=== PATIENT | female | born 1945 | race African-American/Black ===

== ENCOUNTER 2017-12-10 08:09 | Outpatient (CLI) | payer OTHER, MEDICARE | END 2017-12-10 08:10 | disposition home or self-care (01) | LOC: BICMAMMO 08:09 | PROVIDERS: ATTEND Internal Medicine | DX: Z12.31 Encounter for screening mammogram for malignant neoplasm of breast (principal); Z80.3 Family history of malignant neoplasm of breast | CPT/HCPCS: 77063; 77067 ==

== ENCOUNTER 2018-02-07 07:07 | Outpatient (CLI) | payer OTHER, MEDICARE ==
--- NOTE | 2018-02-07 08:17 | RAD ---
3 VIEWS LUMBAR SPINE: Date: 02/07/18 COMPARISON: None. HISTORY: Low back pain. FINDINGS: There is prominent degenerative change noted within the lower lumbar spine with significant disc spac e narrowing, degenerative end plate change, and osteophyte formation at L3-4, L4-5, and L5-S1. No acu te fracture is evident. There is prominent multilevel lower lumbar spine facet hypertrophic change. N o significant anterolisthesis or retrolisthesis seen. IMPRESSION: Prominent multilevel degenerative disc disease. No acute fracture is seen. POS: [facility]
== END 2018-02-07 07:08 | disposition home or self-care (01) ==
LOC: RAD-FRANK 07:07
PROVIDERS: ATTEND Internal Medicine
DX: M54.9 Dorsalgia, unspecified (principal); G89.29 Other chronic pain; M51.36 Other intervertebral disc degeneration, lumbar region
CPT/HCPCS: 72100

== ENCOUNTER 2018-08-27 12:37 | Outpatient (CLI) | payer OTHER, MEDICARE ==
[~2018-08-27 12:37] MED LIST: Gadobenate Dimeglumine 529 MG/1 ML (20ML VIAL) ONE
--- NOTE | 2018-08-27 17:29 | MRI ---
MRI OF THE RIGHT THIGH WITH AND WITHOUT IV CONTRAST: 08/27/18 PROVIDED CLINICAL HISTORY: Right thigh mass. No comparisons. There is a circumscribed, mass-like area of signal alteration present at the anterior aspect of the r ight proximal thigh measuring approximately 9.6 x 6.4 cm in greatest transverse dimensions and approx imately 15.8 cm in craniocaudal dimension. This demonstrates an inhomogeneously, primarily T2 hyperin tense appearance with foci of somewhat globular T2 hypointensity at the cranial margin. This mass harvey ears predominantly isointense to skeletal muscle on T1 weighted images. There is diffuse, predominant ly solid appearing contrast enhancement. This mass arises from the rectus femoris muscle and is inseparable from such. This is extensively con tiguous with the sartorius muscle at its posterior margin without apparent intervening fat plane. The re are portions of the interface with the vastus musculature posteriorly that demonstrate no definite fat plane the two. The tensor fascia trixie muscle extensively abuts the mass with an intac t intervening fat plane throughout its course. The courses of the regional major neurovascular structures appear separate from this mass. Regional m arrow signal appears normal. Regional muscular signal appears otherwise normal. There is a physiologic amount of fluid within the right hip joint. There is presumably subcortical cy st-like change related to occult articular cartilage loss involving the posterior aspects of the righ t femoral head. The regional tendons demonstrate an intact MR appearance. There is an enlarged lymph node present in the right obturator region. IMPRESSION: 1. Large heterogeneous intramuscular enhancing solid soft tissue mass within the right rectus fe miquel muscle, compatible with malignancy such as sarcoma. 2. Enlarged right obturator lymph node, which may reflect metastatic disease. POS: [facility]
== END 2018-08-27 12:38 | disposition home or self-care (01) ==
LOC: SCSMRI 12:37
PROVIDERS: ATTEND Orthopaedic Surgery
DX: R22.41 Localized swelling, mass and lump, right lower limb (principal); M17.0 Bilateral primary osteoarthritis of knee; R59.0 Localized enlarged lymph nodes
CPT/HCPCS: 82565; A9579

== ENCOUNTER 2018-12-04 00:13 | Outpatient (CLI) | payer OTHER, MEDICARE ==
[2018-12-04 11:49] LABS: #Basophils 0.1 thou/uL (0.0-0.2); #Eosinphils 0.3 thou/uL (0.0-0.7); #Lymphocytes 2.6 thou/uL (1.20-3.40); #Monocytes 0.4 thou/uL (0.11-0.59); #Neutrophils 6.4 thou/uL (1.40-6.50); %Basophils 0.9 % (0.0-1.0); %Eosinophils 3.4 % (0.0-10.0); %Lymphocytes 26.1 % (21.0-51.0); %Monocytes 4.4 % (0.0-10.0); %Neutrophils 65.1 % (42.0-75.0); Mean Corpuscular HGB CONC 30.7 g/dL (32.0-36.0); Mean Corpuscular Volume 84.7 fL (78.0-98.0); Mean Platelet Volume 6.8 fL (7.4-10.4); Platelet Count 411 thou/uL (130-400); RBC Distribution Width 12.7 % (11.5-14.5); Red Blood Cell (RBC) Count 3.85 mill/uL (4.20-5.40); White Blood Cell (WBC) Count 9.8 thou/uL (4.8-10.8)
[2018-12-04 12:17] LABS: Anion Gap 14 mmol/L (10-20); BUN (Urea Nitrogen) 13 mg/dL (9.8-20.1); Calc. Creatinine Clearance 0 mL/min (70-130); Calcium 10.1 mg/dL (7.8-10.44); Carbon Dioxide 27 mmol/L (23-31); Chloride 99 mmol/L (98-107); Estimated GFR-MDRD 70; Glucose 78 mg/dL (83-110); Potassium 4.1 mmol/L (3.5-5.1); Sodium 136 mmol/L (136-145)
--- NOTE | 2018-12-04 12:37 | RAD ---
PA AND LATERAL CHEST: Indication: History of pre op. Comparison: 03-23-10 FINDINGS: There is mild cardiomegaly without evidence of cardiac decompensation. No consolidation, pleural effu juni or pneumothorax. There is multilevel spondylosis present. There are surgical anchors within the humeral heads bilaterally consistent with prior rotator cuff repair. IMPRESSION: Mild cardiomegaly without evidence of cardiac decompensation. POS: [facility]
--- NOTE | 2018-12-06 16:36 | EKG ---
Test Reason : Blood Pressure : / mmHG Vent. Rate : 077 BPM Atrial Rate : 077 BPM P-R Int : 160 ms QRS Dur : 086 ms QT Int : 396 ms P-R-T Axes : 059 -07 041 degrees QTc Int : 448 ms Normal sinus rhythm Normal ECG When compared with ECG of 28-AUG-2011 10:22, No significant change was found Confirmed by DR. Shirin ABURTO ([id number]) on 12/06/2018 4:35:51 PM Referred By: MARTHA Confirmed By:DR. Shirin ABURTO
== END 2018-12-04 00:14 | disposition home or self-care (01) ==
LOC: LABBT 00:13
PROVIDERS: ATTEND Specialist
DX: Z01.818 Encounter for other preprocedural examination (principal); C49.21 Malignant neoplasm of connective and soft tissue of right lower limb, including hip; I51.7 Cardiomegaly
CPT/HCPCS: 71046; 80048; 85025; 93005; 93010

== ENCOUNTER 2018-12-05 06:21 | Day surgery (SDC) | payer OTHER, MEDICARE ==
[2018-12-04 10:57] VITALS: BMI 36.2
[2018-12-05] MEDS ORDERED: Bupivacaine/Epinephrine 0.25% 30 ML VIAL ONE (08:23)
[2018-12-05] MEDS ORDERED: Lidocaine 1% (PF) 30 ML VIAL ONE (08:23)
[2018-12-05] MEDS ORDERED: Fentanyl 100 MCG/2 ML VIAL ONE (08:28)
[2018-12-05] MEDS ORDERED: Lidocaine 2% Jelly 5 ML TUBE ONE (08:29)
[2018-12-05] MEDS ORDERED: Glycopyrrolate 0.2 MG/ML 5 ML SYRINGE ONE (10:06)
[2018-12-05] MEDS ORDERED: Ondansetron PF 4 MG/2 ML Vial ONE (10:06)
[2018-12-05] MEDS ORDERED: PROPOFOL 200 MG/20 ML VIAL ONE (10:06)
--- NOTE | 2018-12-05 11:37 | RAD ---
CHEST 1 VIEW: INDICATION: History of MediPort placement. FINDINGS: There is a new subclavian right chest wall MediPort with the tip projecting in the SVC. No pneumotho rax is evident. Cardiomegaly and chronic lung changes are stable. IMPRESSION: New chest wall MediPort placement without evidence of pneumothorax. POS: [facility]
--- NOTE | 2018-12-06 02:28 | OP ---
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 OPERATION PERFORMED: Placement of right subclavian standard-sized power compatible MediPort. ANESTHESIA: Total intravenous anesthesia with local using 0.25% Marcaine with epinephrine. INDICATIONS: The patient is a 73-year-old black female who presents with a fairly large right thigh sarcoma. MediPort is requested for chemotherapy administration. DESCRIPTION OF OPERATION: Informed consent was obtained. The patient was taken to the operating room where total intravenous anesthesia was obtained with the patient in supine position. Right periclavicular area was prepped with ChloraPrep and draped in sterile fashion. Local anesthetic was infiltrated and a large-gauge needle was passed under the clavicle in the subclavian vein. Guidewire was passed through the needle and fluoroscopically confirmed to enter the superior vena cava. Additional local anesthetic was infiltrated and transverse incision was created based on needle insertion site. A subcutaneous pocket was dissected inferiorly. Introducer dilator was passed over the guidewire under fluoroscopic guidance. The guidewire and dilator were removed, and the catheter was passed through the introducer. The tip of the catheter was positioned at the atriocaval junction and the catheter was trimmed to the appropriate length and secured to the locking hub of the MediPort. The port was then placed in the subcutaneous pocket where it was secured to the pectoral fascia with 2 interrupted sutures of 3-0 Prolene. The incision was then closed in layers with 3-0 and 4-0 Monocryl. Additional local anesthetic was infiltrated. The port was cannulated with a Calix needle and it aspirated blood freely and was flushed with heparinized saline. Dermabond was placed externally on the skin incision. There were no complications. Blood loss was negligible. The patient tolerated the procedure well and was taken to recovery room in stable condition. FINDINGS: I used a low-profile power compatible MediPort. The patient's anatomy was within normal limits and there were no problems during the procedure. A standard size port was chosen and placed uneventfully in the right subclavian vein. Blood loss was negligible. There were no complications. Fluoroscopy confirmed good placement. The patient tolerated the procedure well, was taken to the recovery room in stable condition. Job ID: [id number]
== END 2018-12-05 10:25 | disposition home or self-care (01) ==
LOC: SDC 06:21
PROVIDERS: ATTEND Specialist
PROC: 05H533Z Insertion of Infusion Device into Right Subclavian Vein, Percutaneous Approach (ICD-10-PCS; principal; 2018-12-05)
DX: C76.51 Malignant neoplasm of right lower limb (principal); I10 Essential (primary) hypertension; E11.9 Type 2 diabetes mellitus without complications; J32.9 Chronic sinusitis, unspecified; J45.909 Unspecified asthma, uncomplicated; M06.9 Rheumatoid arthritis, unspecified; Z79.82 Long term (current) use of aspirin; Z79.84 Long term (current) use of oral hypoglycemic drugs; Z79.899 Other long term (current) drug therapy
CPT/HCPCS: 71045; C1788; J0131; J1642; J2001; J3010

== ENCOUNTER 2019-01-24 07:53 | Outpatient (CLI) | payer OTHER, MEDICARE ==
--- NOTE | 2019-01-24 08:35 | RAD ---
CHEST TWO VIEWS: HISTORY: Malignant neoplasm. COMPARISON: 12/05/2018 FINDINGS: The cardiac silhouette and pulmonary vasculature are unremarkable. The mediastinum is midline with a ortic calcification. The right subclavian Mediport remains in place. The catheter now loops over th e lower internal jugular vein, with the tip near the confluence of the subclavian and internal jugula r veins. No evidence of pneumothorax. No pleural fluid or lobar consolidation. Postoperative skinner es, right shoulder. IMPRESSION: 1. The catheter of the right subclavian Mediport has become elevated somewhat, with a loop in the lo wer internal jugular vein and the tip at the upper superior vena cava. 2. Atherosclerosis. 3. Other findings are stable. POS: [facility]
== END 2019-01-24 07:54 | disposition home or self-care (01) ==
LOC: RAD 07:53
PROVIDERS: ATTEND Specialist
DX: C76.51 Malignant neoplasm of right lower limb (principal); I70.0 Atherosclerosis of aorta; Z98.890 Other specified postprocedural states
CPT/HCPCS: 71046

== ENCOUNTER 2019-02-06 18:46 | Day surgery (SDC) | payer OTHER, MEDICARE ==
[2019-02-06 18:58] VITALS: BMI 33.3
[2019-02-06] MEDS ORDERED: diphenhydrAMINE 25 MG CAP PO SCH (19:00)
[2019-02-06] MEDS ORDERED: Acetaminophen 500 MG TAB PO SCH (19:00)
[2019-02-06] MEDS ORDERED: Prevnar 13-Val Conj/PF 0.5 ML SYRINGE IM ONE (21:00)
[2019-02-07 03:34] VITALS: BP 115/57; TEMP 99
[2019-02-07] MEDS ORDERED: Sodium Chloride 0.9% 10 ML ONE ×2 (03:38→03:46)
[2019-02-07 04:11] LABS: Mean Corpuscular Volume 91.3 fL (78.0-98.0)
[2019-02-07 05:02] LABS: Band 4 % (5-11); Eosinophils 2 % (0-10); Hemoglobin 7.9 g/dL (12.0-16.0); Lymphocytes 67 % (21-51); MDiff Complete? YES; Mean Corpuscular HGB CONC 33.2 g/dL (32.0-36.0); Mean Corpuscular Hemoglobin 30.3 pg (27.0-31.0); Mean Platelet Volume 6.9 fL (7.4-10.4); Monocytes 2 % (0-10); Neutrophil 22 % (42-75); Platelet Count 149 thou/uL (130-400); RBC Distribution Width 16.3 % (11.5-14.5); Reactive Lymphocytes 2 % (0-10); White Blood Cell (WBC) Count 1.9 thou/uL (4.8-10.8)
== END 2019-02-07 04:00 | disposition home or self-care (01) ==
LOC: 3SE 18:46 → UNDOADMIN 18:46 → SDC 18:46 → UNDODISIN 02-07 04:00 → SDC/OP 02-07 04:00 → EDSTATUS 02-07 13:35
PROVIDERS: ATTEND Internal Medicine Hematology & Oncology
PROC: 30233N1 Transfusion of Nonautologous Red Blood Cells into Peripheral Vein, Percutaneous Approach (ICD-10-PCS; principal; 2019-02-07)
DX: D64.9 Anemia, unspecified (principal); D69.6 Thrombocytopenia, unspecified
CPT/HCPCS: 36415; 36430; 82728; 83540; 83550; 85025; 86850; 86900; 86901; 90471; 90670; G0009; J1642; P9016; Q0163

== ENCOUNTER 2019-12-24 12:00 | Outpatient (CLI) | payer MEDICARE ==
--- NOTE | 2019-12-24 13:29 | CT ---
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 History of chemotherapy and radiation. FINDINGS: Mediastinum: No mass, lymphadenopathy, or hematoma. Heart: Normal heart size. No pericardial effusion. Minimal coronary artery calcification. Aorta: Atherosclerosis without evidence of aneurysm or periaortic fat stranding. Vessels: Right-sided MediPort catheter terminates in the superior vena cava. Lower neck and axilla: No evidence of mass or lymphadenopathy. Soft tissues: Asymmetric density in the left breast, incompletely evaluated. Left breast mammogram is recommended. Upper abdomen: No acute abnormality. Trachea and central bronchi: Patent. Pleural spaces: No pleural effusion. No pneumothorax. Lungs: Scar and dependent atelectatic change. No masses or consolidation. Nodules: No suspicious nodules in the right or left lung. Osseous structures: No lytic or blastic lesions. There are degenerative changes with osteophyte forma tion in the thoracic spine. IMPRESSION: 1. No CT evidence of intrathoracic malignancy or metastases. 2. Asymmetric density in the left breast with asymmetric skin thickening of the left breast. Left yahaira ast mammogram is recommended. CODE T Transcribed Date/Time: 12/24/2019 1:48 PM
--- NOTE | 2019-12-24 14:35 | MRI ---
MR OF THE RIGHT THIGH WITH AND WITHOUT CONTRAST: 12/24/19 INDICATION: History of sarcoma removal from right femur; follow-up exam. COMPARISON: Prior MR of the right thigh with and without contrast dated 08/27/18. TECHNIQUE: Multiplanar and multisequence MR images were obtained of the right thigh with and without contrast ut ilizing 20 mL of Multihance. FINDINGS: There is postsurgical change of a partial resection of the rectus femoris muscle and the large hetero geneous enhancing intramuscular mass seen within the right rectus femoris muscle on the prior examina tion. No suspicious recurrent enhancement is grossly evident. There is mild enhancing scar seen withi n the surgical bed of the right anterior thigh muscular compartment. There is mild subcutaneous edema involving the soft tissues of the right thigh. There is a suspected seroma involving the medial aspe ct of the distal left thigh measuring 7.4 x 4.1 cm. There is a persistent enlarged right obturator ly mph node seen best on the sagittal images of the thigh measuring 2.5 x 1.8 cm. There is mild scattere d degenerative change of the visualized right hip. The visualized intrapelvic structures appear withi n normal limits. IMPRESSION: 1. Mild amount of residual enhancing scar seen within the resection bed of the anterior muscular compartment of the right thigh. There is a moderate sized seroma measuring 7.4 x 4.1 cm within the s ubcutaneous tissue along the distal margin of the surgical bed. No overt evidence to suggest local re currence of disease. 2. Persistent enlarged right obturator lymph node. POS:
== END 2019-12-24 12:01 | disposition home or self-care (01) ==
LOC: CT 12:00
DX: C49.21 Malignant neoplasm of connective and soft tissue of right lower limb, including hip (principal); R92.2 Inconclusive mammogram; N64.89 Other specified disorders of breast; R59.0 Localized enlarged lymph nodes; S70.11XA Contusion of right thigh, initial encounter
CPT/HCPCS: 71260; 82565

== ENCOUNTER 2020-09-04 08:44 | Inpatient (IN) | payer MEDICARE, OTHER ==
[2020-09-04] MEDS ORDERED: Dexamethasone 10 MG/ML VIAL ONE (09:23)
[2020-09-04 09:52] LABS: #Eosinphils 0.1 thou/uL (0.0-0.7); #Lymphocytes 0.7 thou/uL (1.20-3.40); #Monocytes 0.2 thou/uL (0.11-0.59); #Neutrophils 2.2 thou/uL (1.40-6.50); %Basophils 0.2 % (0.0-1.0); %Eosinophils 3.7 % (0.0-10.0); %Lymphocytes 22.2 % (21.0-51.0); %Monocytes 6.5 % (0.0-10.0); %Neutrophils 67.4 % (42.0-75.0); Hemoglobin 10.3 g/dL (12.0-16.0); Mean Corpuscular HGB CONC 31.3 g/dL (32.0-36.0); Mean Corpuscular Volume 89.6 fL (78.0-98.0); Mean Platelet Volume 7.5 fL (7.4-10.4); Platelet Count 214 thou/uL (130-400); RBC Distribution Width 12.6 % (11.5-14.5); Red Blood Cell (RBC) Count 3.67 mill/uL (4.20-5.40); White Blood Cell (WBC) Count 3.3 thou/uL (4.8-10.8)
--- NOTE | 2020-09-04 09:52 | RAD ---
PORTABLE CHEST: HISTORY: COVID positive with new cough and fever. COMPARISON: A 01/24/2019 which is the most recent chest x-ray available for comparison. FINDINGS: Heart size is enlarged. Pulmonary vessels appear mildly engorged. There are also some patchy lung c hanges in the left mid lung field and right base. This could represent some early infiltrates relate d to COVID pneumonia. IMPRESSION: Findings suspicious for some developing bilateral infiltrates. POS: [facility]
[2020-09-04 10:15] LABS: ALT (SGPT) 18 U/L (8-55); AST (SGOT) 33 U/L (5-34); Albumin 3.5 g/dL (3.4-4.8); Alkaline Phosphatase 94 U/L (40-110); Anion Gap 14 mmol/L (10-20); BUN (Urea Nitrogen) 14 mg/dL (9.8-20.1); Bilirubin, Total 0.7 mg/dL (0.2-1.2); Calc. Creatinine Clearance 0 mL/min (70-130); Calcium 8.6 mg/dL (7.8-10.44); Carbon Dioxide 28 mmol/L (23-31); Chloride 102 mmol/L (98-107); Globulin 3.4 g/dL (2.4-3.5); Glucose 104 mg/dL (83-110); Protein, Total 6.9 g/dL (6.0-8.3); Sodium 140 mmol/L (136-145)
[2020-09-04] MEDS ORDERED: Azithromycin 500 MG VIAL ONE (10:50)
[2020-09-04] MEDS ORDERED: cefTRIAXone\\ROCEPHIN 2 GM VIAL ONE (10:50)
[2020-09-04 11:25] LABS: CKMB 0.3 ng/mL (0-6.6)
[2020-09-04] MEDS ORDERED: Iopamidol-370 76% 500 ML 1 ML ONE (12:10)
[2020-09-04] MEDS ORDERED: Acetaminophen 325 MG TAB PO PRN (14:01)
[2020-09-04] MEDS ORDERED: Senokot S 8.6-50 MG TAB PO PRN (14:01)
[2020-09-04 14:54] LABS: Troponin I 0.026 ng/mL (< 0.028)
[2020-09-04 15:04] LABS: SARS-CoV-2 NAA Rapid Test DETECTED (NotDetected)
--- NOTE | 2020-09-04 15:07 | CT ---
CTA Angio Chest W Con History: Elevated d-dimer Comparison: Chest radiograph same day Findings: CT angiogram chest performed after the intravenous administration of contrast. 3-D renderin g provided. No proximal segmental pulmonary arterial filling defect of the exam is limited due to the delayed pha se of contrast. Aortic size is nonaneurysmal. Upper abdomen is without acute abnormality. Extensive peripheral patchy perihilar airspace opacities. No pneumothorax. Impression: 1. No pulmonary embolism. 2. Commonly reported imaging findings of Covid-19 pneumonia.
[2020-09-04] MEDS ORDERED: traMADol HCl 50 MG TAB PO PRN (16:13)
--- NOTE | 2020-09-04 16:39 | HP ---
CHIEF COMPLAINT: Generalized weakness. HISTORY OF PRESENT ILLNESS: The patient is a 74-year-old female with a past medical history of hypertension, diabetes, and asthma, who comes into the hospital with complaints of generalized weakness and decreased appetite for the past couple days. The patient stated that her daughter tested positive for COVID on Sunday and she started having symptoms starting Sunday. The patient COVID test in the ER was positive. She denies any shortness of breath, any nausea, vomiting; however, she did have diarrhea x2. Chief complaint, of note chills; however, had some subjective fevers. PAST MEDICAL HISTORY: As of the following; 1. She has a history of diabetes. 2. She has a history of hypertension. 3. She has a history of asthma. 4. She has a history of sarcoma of the right lower limb and chronic sinusitis. PAST SURGICAL HISTORY: She has had a and med port put in. FAMILY HISTORY: Father is with lung cancer. Mother , had cancer of unknown origin. ALLERGIES: SHE HAS NO KNOWN DRUG ALLERGIES. MEDICATIONS: She is on; 1. Lisinopril. 2. Metformin. 3. Vitamin D. 4. Aspirin. 5. Calcium. 6. She takes a p.r.n. inhaler. REVIEW OF SYSTEMS: All negative except for the ones mentioned above in the HPI. SOCIAL HISTORY: She is a nonsmoker. Denies any alcohol use or drug use. She is a , lives alone. PHYSICAL EXAMINATION: VITAL SIGNS: As of the following; temperature of 99.3, heart rate 83, blood pressure 129/61, respiratory rate 20, and oxygen saturations 95% on room air. GENERAL: She is awake, alert, and oriented x3. Does not appear in distress, able to speak complete sentences. CV: S1 and S2 present. No murmurs, rubs, or gallops. LUNGS: Clear to auscultation. No rhonchi or wheezes noted. No crackles. ABDOMEN: Soft and nontender. Bowel sounds are present x2. EXTREMITIES: No edema. Pedal pulses are present x2. NEUROLOGIC: Neurovascular, there was no focal deficits noted. SKIN: No cuts, lesions, or bruises noted. LABORATORY DATA: White count of 3.3, hemoglobin of 10.3, hematocrit of 32.9, and her platelets of 214. Chemistry; sodium of 140, potassium of 4.0, BUN of 14, creatinine 1.06. Her ferritin is 3471. Her CRP is 10. Her troponin was mildly elevated at 0.030. EKG, no acute changes. She did have a CTA, which showed COVID like appearance. No PE noted. ASSESSMENT AND PLAN: The patient is a 74-year-old female, who presents to the hospital with generalized weakness. 1. Positive COVID. The patient currently is not on room air. She is 96% to 100%. She is not short of breath. She does not qualify for remdesivir nor she qualify for Decadron. The only reason she was admitted was for mildly positive troponins; however, given her COVID status, her hospital will not allow us to do an echocardiogram or a stress test. Her second troponin has been negative. She has no EKG changes. No chest pain. This is most likely secondary to mildly demand related from her current COVID disease. I will continue to trend her third troponin. I will start her on her home medications with DVT prophylaxis. If her third troponin is negative from COVID standpoint, I will discharge her home. There is a very great likelihood for her to decompensate. Given her history of asthma and her age; however, at this moment, she does not qualify for remdesivir nor did she qualify for any steroids given her 96% on room air. 2. Troponin mildly elevated. We will trend her troponins. Again, this is most likely secondary to demand related, a very, very mild elevation of troponin with no EKG changes and the patient is completely asymptomatic. I will just continue to monitor. She will follow up with her primary and also her Cardiology as outpatient. 3. Diabetes. We will continue her home medication. 4. Asthma. I have encouraged her to use her inhaler as needed. She states that she has not been using her inhaler and she has never had any intubations. 5. Deep venous thrombosis prophylaxis. I will put her on some Lovenox. Job ID: [id number]
[2020-09-04 18:57] LABS: Troponin I 0.026 ng/mL (< 0.028)
[2020-09-04 19:37] VITALS: BMI 34.8
[2020-09-05 04:51] LABS: #Lymphocytes 0.8 thou/uL (1.20-3.40); #Monocytes 0.3 thou/uL (0.11-0.59); #Neutrophils 1.7 thou/uL (1.40-6.50); %Eosinophils 0.4 % (0.0-10.0); %Monocytes 9.5 % (0.0-10.0); Hemoglobin 9.4 g/dL (12.0-16.0); Mean Corpuscular HGB CONC 31.8 g/dL (32.0-36.0); Mean Corpuscular Volume 91.1 fL (78.0-98.0); Mean Platelet Volume 7.6 fL (7.4-10.4); Platelet Count 218 thou/uL (130-400); RBC Distribution Width 12.4 % (11.5-14.5); Red Blood Cell (RBC) Count 3.24 mill/uL (4.20-5.40); White Blood Cell (WBC) Count 2.8 thou/uL (4.8-10.8)
[2020-09-05 05:13] LABS: Anion Gap 16 mmol/L (10-20); BUN (Urea Nitrogen) 17 mg/dL (9.8-20.1); Calc. Creatinine Clearance 77 mL/min (70-130); Calcium 8.6 mg/dL (7.8-10.44); Carbon Dioxide 23 mmol/L (23-31); Chloride 107 mmol/L (98-107); Glucose 123 mg/dL (83-110); Sodium 142 mmol/L (136-145)
[2020-09-05] MEDS ORDERED: Enoxaparin Sodium 40 MG/0.4 ML SYRINGE SC SCH (09:00)
[2020-09-05] MEDS ORDERED: Lisinopril 10 MG TAB PO SCH (09:00)
[2020-09-05] MEDS ORDERED: FLU VACC QS2020-21(65YR UP)/PF 240 MCG/0.7 ML SYRINGE IM ONE (09:00)
[2020-09-05] MEDS ORDERED: Guaifenesin DM 100-10/5 ML UDCUP PO PRN (09:12)
[2020-09-05] MEDS ORDERED: Zinc Sulfate 220 MG CAP PO SCH (09:15)
[2020-09-05] MEDS ORDERED: Famotidine 20 MG TAB PO SCH (09:15)
[2020-09-05] MEDS ORDERED: Multivit, Therapeutic 1 TAB PO SCH (09:15)
[2020-09-05] MEDS ORDERED: Ascorbic Acid 500 mg Chewable Tablet PO SCH (09:15)
[2020-09-05] MEDS ORDERED: Albuterol 200 PUFF (6.7GM INHALER) INH PRN (09:22)
[2020-09-05] MEDS ORDERED: REMDESIVIR (EUA) 200 MG in Sodium Chloride 0.9% 250 ML 210 ML IV SCH (10:00)
[2020-09-05] MEDS: Triamterene/Hydrochlorothiazide 37.5 mg/25 mg Tablet PO SCH (11:43)
[2020-09-05] MEDS: Cholecalciferol 1,000 UNITS (25 MCG) TAB PO SCH (11:43)
[2020-09-05] MEDS: Fish Oil 1,000 MG CAP PO SCH (11:43)
[2020-09-05] MEDS: Dexamethasone 4 mg/ml Vial SLOW IVP SCH (11:44)
[2020-09-05] MEDS: Calcium Carbonate 600 MG TAB PO SCH (11:44)
[2020-09-05] MEDS: Aspirin Chewable 81 MG TAB PO SCH (11:44)
--- NOTE | 2020-09-05 15:53 | PDOC.HOSPP ---
- Subjective Encounter Date: 09/05/20 Encounter Time: 09:30 Subjective: Patient seen and examined for respiratory failure due to COVID-19 pneumonia. Short of breath on [id number] exertion. Mild dry cough. Denies any chest pain, palpitations or syncope. No nausea or vomiting. - Objective Vital Signs & Weight: Vital Signs (12 hours) Temp Pulse Resp BP Pulse Ox 09/05/20 12:00 99.6 F 82 34 H 146/67 H 92 L 09/05/20 09:19 98.9 F 78 20 168/76 H 94 L 09/05/20 04:00 98.2 F 72 18 136/66 93 L Weight Admit Weight 203 lb Weight 203 lb I&O: 09/04/20 09/05/20 09/06/20 06:59 06:59 06:59 Intake Total 1180 Output Total 1300 Balance -120 Result Diagrams: 09/05/20 04:40 09/05/20 04:40 Additional Labs: Abnormal Lab Results - Last 48 hrs 09/04/20 09:39: Albumin/Globulin Ratio 1.0 L 09/04/20 09:39: WBC 3.3 L, RBC 3.67 L, Hgb 10.3 L, Hct 32.9 L, MCHC 31.3 L, Lymphocytes # 0.7 L 09/04/20 09:39: Troponin I 0.030 H 09/04/20 09:39: C-Reactive Protein 10.03 H 09/04/20 09:39: Ferritin 3471.00 H 09/04/20 09:39: Lactate Dehydrogenase 354 H 09/04/20 09:39: D-Dimer 1.83 H 09/04/20 09:40: SARS-CoV-2 Rap RNA(RT-PCR) DETECTED A* 09/05/20 04:40: WBC 2.8 L, RBC 3.24 L, Hgb 9.4 L, Hct 29.5 L, MCHC 31.8 L, Lymphocytes # 0.8 L Microbiology - Entire Visit 09/04/20 10:56 Venous blood - Left Arm Blood Culture - Preliminary Specimen has been received and culture in progress. No Growth to date. 09/04/20 10:55 Venous blood - Right Arm Blood Culture - Preliminary Specimen has been received and culture in progress. No Growth to date. Radiology Reviewed by me: Yes (CTA chestbilateral pneumonia) EKG Reviewed by me: Yes (Sinus rhythm on telemetry) Hospitalist ROS - Review of Systems Constitutional: reports: weakness, malaise. denies: fever, chills, sweats, other Gastrointestinal: denies: nausea, vomiting, abdominal pain, diarrhea, constipation, melena, hematochezia, other - Medication Medications: Active Medications Generic Name Dose Route Start Last Admin Trade Name Freq PRN Reason Stop Dose Admin Aspirin 81 mg 09/05/20 09:00 09/05/20 11:44 Aspirin Chewable 81 Mg Tab PO 81 mg DAILY ELIAN Administration Calcium Carbonate 600 mg 09/05/20 09:00 09/05/20 11:44 Calcium Carbonate 600 Mg Tab PO 600 mg QAM ELIAN Administration Cholecalciferol 1,000 units 09/05/20 09:00 09/05/20 11:43 Cholecalciferol 1,000 Units (25 Mcg) Tab PO 1,000 units DAILY ELIAN Administration Dexamethasone 6 mg 09/05/20 09:00 09/05/20 11:44 Dexamethasone 4 Mg/Ml Vial SLOW IVP 6 mg DAILY ELIAN Administration Fish Oil 1,000 mg 09/05/20 09:00 09/05/20 11:43 Fish Oil 1,000 Mg Cap PO 1,000 mg QAM ELIAN Administration Lisinopril 10 mg 09/05/20 09:00 09/05/20 12:26 Lisinopril 10 Mg Tab PO Not Given DAILY ELIAN Triamterene/Hydrochlorothiazide 1 tab 09/05/20 09:00 09/05/20 11:43 Triamterene/Hydrochlorothiazide 37.5 Mg/25 Mg Tablet PO 1 tab QAM ELIAN Administration - Exam General Appearance: ill appearing Neck: supple, no JVD Heart: RRR, no gallops, no rubs, normal peripheral pulses Respiratory: no wheezes, normal chest expansion, rales, rhonchi Gastrointestinal: soft, non-tender, non-distended, normal bowel sounds Extremities: no cyanosis, no clubbing, no edema Extremities - other findings: No calf tenderness Neurological: no new deficit Psychiatric: normal affect, A&O x 3 Hosp A/P - Plan DVT proph w/lovenox, DVT proph w/SCDs Patient is a 74-year-old female with hypertension, diabetes mellitus type 2 and asthma presented to the hospital with generalized weakness. Her work-up was consistent with acute hypoxic respiratory failure due to COVID-19 pneumonia. Her room air sat was 88% on the day of admission. CT angiogram of the chest was negative for pulmonary embolism. It showed findings consistent with bilateral Covid pneumonia. Patient was started on remdesivir with Decadron and bronchodilators. She also received convalescent plasma. Assessment: Acute hypoxic respiratory failure due to COVID-19 pneumoniaPOA Generalized weakness due to above CKD stage II Obesity with a BMI 34.8 Diabetes mellitus type 2 Hypertension Mild intermittent asthma Plan: Continue isolation. Hold lisinopril. Continue O2 supplementation as needed. Continue remdesivir, Decadron with bronchodilators. Add vitamin C and zinc. Patient was advised to ambulate in the room. Monitor inflammatory markers. Plan of care was discussed with the patient who stated understanding
[2020-09-05] MEDS: Albuterol 200 PUFF (6.7GM INHALER) INH SCH ×3 (16:33→20:50)
[2020-09-05] MEDS: Famotidine 20 MG TAB PO SCH (20:51)
[2020-09-05] MEDS: Doxycycline 100 MG CAP PO SCH (20:51)
[2020-09-05] MEDS: guaiFENesin ER 600 MG TAB PO SCH (20:51)
[2020-09-05] MEDS: Enoxaparin Sodium 40 MG/0.4 ML SYRINGE SC SCH (20:51)
[2020-09-05] MEDS: Mometasone 200 MCG/Formoterol 5 MCG 120 PUFF INHALER INH SCH (20:51)
[2020-09-06] MEDS: Albuterol 200 PUFF (6.7GM INHALER) INH SCH ×6 (01:03→21:40)
[2020-09-06 05:17] LABS: ALT (SGPT) 20 U/L (8-55); AST (SGOT) 30 U/L (5-34); Albumin 3.5 g/dL (3.4-4.8); Alkaline Phosphatase 86 U/L (40-110); Bilirubin, Direct 0.2 mg/dL (0.1-0.3); Bilirubin, Total 0.4 mg/dL (0.2-1.2); Protein, Total 6.8 g/dL (6.0-8.3)
[2020-09-06 05:18] LABS: ALT (SGPT) 18 U/L (8-55); AST (SGOT) 28 U/L (5-34); Albumin 3.5 g/dL (3.4-4.8); Alkaline Phosphatase 84 U/L (40-110); Anion Gap 16 mmol/L (10-20); BUN (Urea Nitrogen) 16 mg/dL (9.8-20.1); Bilirubin, Total 0.4 mg/dL (0.2-1.2); CRP (Inflammatory) 5.32 mg/dL (= or < 0.5); Calc. Creatinine Clearance 78 mL/min (70-130); Calcium 8.8 mg/dL (7.8-10.44); Carbon Dioxide 25 mmol/L (23-31); Chloride 109 mmol/L (98-107); Globulin 3.4 g/dL (2.4-3.5); Glucose 79 mg/dL (83-110); Magnesium 1.8 mg/dL (1.6-2.6); Phosphorus 2.9 mg/dL (2.3-4.7); Potassium 4.1 mmol/L (3.5-5.1); Protein, Total 6.9 g/dL (6.0-8.3); Sodium 146 mmol/L (136-145)
[2020-09-06] MEDS: Mometasone 200 MCG/Formoterol 5 MCG 120 PUFF INHALER INH SCH ×2 (05:38→17:07)
[2020-09-06 06:09] LABS: Band 6 % (5-11); Hemoglobin 9.9 g/dL (12.0-16.0); Lymphocytes 28 % (21-51); MDiff Complete? YES; Mean Corpuscular HGB CONC 32.3 g/dL (32.0-36.0); Mean Corpuscular Hemoglobin 29.5 pg (27.0-31.0); Mean Corpuscular Volume 91.5 fL (78.0-98.0); Mean Platelet Volume 7.4 fL (7.4-10.4); Monocytes 1 % (0-10); Neutrophil 64 % (42-75); Platelet Count 282 thou/uL (130-400); RBC Distribution Width 12.5 % (11.5-14.5); Reactive Lymphocytes 1 % (0-10); Red Blood Cell (RBC) Count 3.36 mill/uL (4.20-5.40); White Blood Cell (WBC) Count 4.5 thou/uL (4.8-10.8)
[2020-09-06] MEDS: Aspirin Chewable 81 MG TAB PO SCH (09:45)
[2020-09-06] MEDS: Fish Oil 1,000 MG CAP PO SCH (09:45)
[2020-09-06] MEDS: Doxycycline 100 MG CAP PO SCH ×2 (09:45→21:40)
[2020-09-06] MEDS: Calcium Carbonate 600 MG TAB PO SCH (09:45)
[2020-09-06] MEDS: Zinc Sulfate 220 MG CAP PO SCH (09:45)
[2020-09-06] MEDS: Famotidine 20 MG TAB PO SCH ×2 (09:45→21:40)
[2020-09-06] MEDS: guaiFENesin ER 600 MG TAB PO SCH ×2 (09:45→21:40)
[2020-09-06] MEDS: Triamterene/Hydrochlorothiazide 37.5 mg/25 mg Tablet PO SCH ×2 (09:46→09:56)
[2020-09-06] MEDS: Multivit, Therapeutic 1 TAB PO SCH (09:46)
[2020-09-06] MEDS: Ascorbic Acid 500 mg Chewable Tablet PO SCH (09:46)
[2020-09-06] MEDS: Cholecalciferol 1,000 UNITS (25 MCG) TAB PO SCH (09:46)
[2020-09-06] MEDS: Dexamethasone 4 mg/ml Vial SLOW IVP SCH (09:47)
[2020-09-06] MEDS: Enoxaparin Sodium 40 MG/0.4 ML SYRINGE SC SCH (09:48)
[2020-09-06] MEDS: REMDESIVIR (EUA) 100 MG in Sodium Chloride 0.9% 250 ML 230 ML IV SCH (12:33)
[2020-09-06] MEDS ORDERED: Amlodipine 5 MG TAB PO SCH (15:00)
--- NOTE | 2020-09-06 22:07 | PDOC.HOSPP ---
- Subjective Encounter Date: 09/06/20 Encounter Time: 12:30 Subjective: Patient seen and examined for respiratory failure/COVID 19 pneumonia. Symptomatically feeling better. Mild dry cough. No chest pain or palpitations. - Objective Vital Signs & Weight: Vital Signs (12 hours) Temp Pulse Resp BP Pulse Ox 09/06/20 19:40 98.6 F 72 23 H 178/84 H 96 09/06/20 17:00 97.0 F L 70 28 H 155/72 H 97 09/06/20 12:45 99.1 F 74 20 158/74 H 99 Weight Admit Weight 203 lb Weight 203 lb I&O: 09/05/20 09/06/20 09/07/20 06:59 06:59 06:59 Intake Total 1180 202 Output Total 1300 540 Balance -120 -338 Result Diagrams: 09/06/20 04:31 09/06/20 04:31 Additional Labs: Abnormal Lab Results - Last 48 hrs 09/05/20 04:40: WBC 2.8 L, RBC 3.24 L, Hgb 9.4 L, Hct 29.5 L, MCHC 31.8 L, Lymphocytes # 0.8 L 09/06/20 04:30: Ferritin 2250.10 H 09/06/20 04:30: D-Dimer 1.17 H 09/06/20 04:31: Sodium 146 H, Chloride 109 H, C-Reactive Protein 5.32 H, Albumin/Globulin Ratio 1.0 L 09/06/20 04:31: WBC 4.5 L, RBC 3.36 L, Hgb 9.9 L, Hct 30.7 L Microbiology - Entire Visit 09/04/20 10:56 Venous blood - Left Arm Blood Culture - Preliminary NO GROWTH AT 48 HOURS 09/04/20 10:55 Venous blood - Right Arm Blood Culture - Preliminary NO GROWTH AT 48 HOURS EKG Reviewed by me: Yes (Sinus rhythm on telemetry) Hospitalist ROS - Review of Systems Respiratory: reports: cough, dry, SOB with excertion. denies: shortness of breath, hemoptysis, pleuritic pain, sputum, wheezing, other Cardiovascular: denies: chest pain, palpitations, orthopnea, paroxysmal noc. dyspnea, edema, light headedness, other - Medication Medications: Active Medications Generic Name Dose Route Start Last Admin Trade Name Freq PRN Reason Stop Dose Admin Albuterol Sulfate 2 puff 09/05/20 13:00 09/06/20 21:40 Albuterol 200 Puff (6.7gm Inhaler) INH 2 puff Q4HR ELIAN Administration Ascorbic Acid 1,000 mg 09/06/20 09:00 09/06/20 09:46 Ascorbic Acid 500 Mg Chewable Tablet PO 1,000 mg DAILY ELIAN Administration Aspirin 81 mg 09/05/20 09:00 09/06/20 09:45 Aspirin Chewable 81 Mg Tab PO 81 mg DAILY ELIAN Administration Calcium Carbonate 600 mg 09/05/20 09:00 09/06/20 09:45 Calcium Carbonate 600 Mg Tab PO 600 mg QAM ELIAN Administration Cholecalciferol 1,000 units 09/05/20 09:00 09/06/20 09:46 Cholecalciferol 1,000 Units (25 Mcg) Tab PO 1,000 units DAILY ELIAN Administration Dexamethasone 6 mg 09/05/20 09:00 09/06/20 09:47 Dexamethasone 4 Mg/Ml Vial SLOW IVP 6 mg DAILY ELIAN Administration Doxycycline Hyclate 100 mg 09/05/20 21:00 09/06/20 21:40 Doxycycline 100 Mg Cap PO 100 mg BID ELIAN Administration Famotidine 20 mg 09/05/20 21:00 09/06/20 21:40 Famotidine 20 Mg Tab PO 20 mg BID ELIAN Administration Fish Oil 1,000 mg 09/05/20 09:00 09/06/20 09:45 Fish Oil 1,000 Mg Cap PO 1,000 mg QAM ELIAN Administration Guaifenesin 600 mg 09/05/20 21:00 09/06/20 21:40 Guaifenesin Er 600 Mg Tab PO 600 mg Q12HR ELIAN Administration Remdesivir 100 mg/ Sodium 250 mls @ 250 mls/hr 09/06/20 10:00 09/06/20 12:33 Chloride IV 09/09/20 10:59 250 mls 1000 ELIAN Administration Lisinopril 10 mg 09/05/20 09:00 09/05/20 12:26 Lisinopril 10 Mg Tab PO Not Given DAILY ELIAN Mometasone Furoate/Formoterol Fumar 2 puff 09/05/20 18:30 09/06/20 17:07 Mometasone 200 Mcg/Formoterol 5 Mcg 120 Puff Inhaler INH 2 puff BID-RT ELIAN Administration Multivitamins 1 tab 09/06/20 09:00 09/06/20 09:46 Multivit, Therapeutic 1 Tab PO 1 tab DAILY ELIAN Administration Triamterene/Hydrochlorothiazide 1 tab 09/05/20 09:00 09/06/20 09:56 Triamterene/Hydrochlorothiazide 37.5 Mg/25 Mg Tablet PO Not Given QAM ELIAN Zinc Sulfate 220 mg 09/06/20 09:00 09/06/20 09:45 Zinc Sulfate 220 Mg Cap PO 220 mg DAILY ELIAN Administration - Exam General Appearance: ill appearing Neck: supple, no JVD Heart: RRR, no gallops Respiratory: no wheezes, rales, rhonchi Gastrointestinal: soft, non-tender, no guarding, no rigidity Extremities: no cyanosis Hosp A/P - Plan DVT proph w/lovenox, DVT proph w/SCDs Patient is a 74-year-old female with hypertension, diabetes mellitus type 2 and asthma presented to the hospital with generalized weakness. Her work-up was consistent with acute hypoxic respiratory failure due to COVID-19 pneumonia. Her room air sat was 88% on the day of admission. CT angiogram of the chest was negative for pulmonary embolism. It showed findings consistent with bilateral Covid pneumonia. Patient was started on remdesivir with Decadron and bronchodilators. She also received convalescent plasma. Assessment: Acute hypoxic respiratory failure due to COVID-19 pneumonia Generalized weakness due to above CKD stage II Obesity with a BMI 34.8 Diabetes mellitus type 2 Hypertension Mild intermittent asthma Mild hypernatremia Plan: Hold triamterene HCTZ due to hypernatremia. Add amlodipine for now. Continue albuterol, doxycycline, Decadron with Remdesivir. Continue Lovenox for DVT prophylaxis. GI prophylaxis. Continue other medications as above. Case discussed with patient's daughter over the phone. A.m. labs. Continue isolation
[2020-09-07] MEDS: Albuterol 200 PUFF (6.7GM INHALER) INH SCH ×6 (02:00→20:24)
[2020-09-07] MEDS: Mometasone 200 MCG/Formoterol 5 MCG 120 PUFF INHALER INH SCH ×2 (05:00→17:58)
[2020-09-07 05:28] LABS: ALT (SGPT) 28 U/L (8-55); AST (SGOT) 40 U/L (5-34); Albumin 3.3 g/dL (3.4-4.8); Alkaline Phosphatase 84 U/L (40-110); Anion Gap 15 mmol/L (10-20); BUN (Urea Nitrogen) 18 mg/dL (9.8-20.1); Bilirubin, Total 0.3 mg/dL (0.2-1.2); Calc. Creatinine Clearance 79 mL/min (70-130); Calcium 8.6 mg/dL (7.8-10.44); Carbon Dioxide 24 mmol/L (23-31); Chloride 108 mmol/L (98-107); Globulin 3.4 g/dL (2.4-3.5); Glucose 75 mg/dL (83-110); Magnesium 1.8 mg/dL (1.6-2.6); Potassium 4.2 mmol/L (3.5-5.1); Protein, Total 6.7 g/dL (6.0-8.3); Sodium 143 mmol/L (136-145)
[2020-09-07 06:09] LABS: Band 15 % (5-11); Eosinophils 1 % (0-10); Hemoglobin 9.7 g/dL (12.0-16.0); Lymphocytes 26 % (21-51); MDiff Complete? YES; Mean Corpuscular HGB CONC 32.3 g/dL (32.0-36.0); Mean Corpuscular Volume 89.8 fL (78.0-98.0); Mean Platelet Volume 7.4 fL (7.4-10.4); Monocytes 2 % (0-10); Neutrophil 56 % (42-75); Platelet Count 319 thou/uL (130-400); RBC Distribution Width 12.7 % (11.5-14.5); RBC Morphology Normal; Red Blood Cell (RBC) Count 3.34 mill/uL (4.20-5.40); White Blood Cell (WBC) Count 4.3 thou/uL (4.8-10.8)
[2020-09-07] MEDS ORDERED: Amlodipine 5 MG TAB PO SCH (09:00)
[2020-09-07] MEDS: Enoxaparin Sodium 40 MG/0.4 ML SYRINGE SC SCH (10:14)
[2020-09-07] MEDS: Famotidine 20 MG TAB PO SCH ×2 (10:15→20:23)
[2020-09-07] MEDS: guaiFENesin ER 600 MG TAB PO SCH ×2 (10:15→20:23)
[2020-09-07] MEDS: Fish Oil 1,000 MG CAP PO SCH (10:15)
[2020-09-07] MEDS: Doxycycline 100 MG CAP PO SCH ×2 (10:15→20:23)
[2020-09-07] MEDS: Multivit, Therapeutic 1 TAB PO SCH (10:15)
[2020-09-07] MEDS: Zinc Sulfate 220 MG CAP PO SCH (10:15)
[2020-09-07] MEDS: Calcium Carbonate 600 MG TAB PO SCH (10:15)
[2020-09-07] MEDS: Dexamethasone 4 mg/ml Vial SLOW IVP SCH (10:16)
[2020-09-07] MEDS: Aspirin Chewable 81 MG TAB PO SCH (10:16)
[2020-09-07] MEDS: Cholecalciferol 1,000 UNITS (25 MCG) TAB PO SCH (10:16)
[2020-09-07] MEDS: Ascorbic Acid 500 mg Chewable Tablet PO SCH (10:16)
[2020-09-07] MEDS: REMDESIVIR (EUA) 100 MG in Sodium Chloride 0.9% 250 ML 230 ML IV SCH (13:12)
[2020-09-07] MEDS: Triamterene/Hydrochlorothiazide 37.5 mg/25 mg Tablet PO SCH (18:10)
[2020-09-07] MEDS ORDERED: Magnesium 2 GM/50 ML 2 GM in Premix Bag 1 BAG IVPB SCH (18:15)
--- NOTE | 2020-09-07 20:20 | PDOC.HOSPP ---
- Subjective Encounter Date: 09/07/20 Encounter Time: 17:00 Subjective: Patient seen and examined for respiratory failure/COVID-19 pneumonia. Denies any new complaints. Mild cough with small amount of production. Short of breath on [id number] exertion. - Objective Vital Signs & Weight: Vital Signs (12 hours) Temp Pulse Resp BP Pulse Ox 09/07/20 19:36 98.5 F 88 16 177/80 H 95 09/07/20 15:30 98.9 F 83 16 162/70 H 94 L 09/07/20 13:24 98.4 F 75 28 H 142/66 H 96 09/07/20 10:25 99.3 F 77 16 149/72 H 93 L Weight Admit Weight 203 lb Weight 203 lb I&O: 09/06/20 09/07/20 09/08/20 06:59 06:59 06:59 Intake Total 202 130 730 Output Total 540 420 400 Balance -338 -290 330 Result Diagrams: 09/07/20 04:29 09/07/20 04:29 Additional Labs: Abnormal Lab Results - Last 48 hrs 09/06/20 04:30: Ferritin 2250.10 H 09/06/20 04:30: D-Dimer 1.17 H 09/06/20 04:31: Sodium 146 H, Chloride 109 H, C-Reactive Protein 5.32 H, Albumin/Globulin Ratio 1.0 L 09/06/20 04:31: WBC 4.5 L, RBC 3.36 L, Hgb 9.9 L, Hct 30.7 L 09/07/20 04:29: Chloride 108 H, AST 40 H, Albumin 3.3 L, Albumin/Globulin Ratio 1.0 L 09/07/20 04:29: WBC 4.3 L, RBC 3.34 L, Hgb 9.7 L, Hct 30.0 L, Band Neuts % (Manual) 15 H Microbiology - Entire Visit 09/04/20 10:56 Venous blood - Left Arm Blood Culture - Preliminary NO GROWTH AT 48 HOURS 09/04/20 10:55 Venous blood - Right Arm Blood Culture - Preliminary NO GROWTH AT 48 HOURS EKG Reviewed by me: Yes (Sinus rhythm on telemetry) Hospitalist ROS - Review of Systems Cardiovascular: denies: chest pain, palpitations, orthopnea, paroxysmal noc. dyspnea, edema, light headedness, other Gastrointestinal: denies: nausea, vomiting, abdominal pain, diarrhea, constipation, melena, hematochezia, other - Medication Medications: Active Medications Generic Name Dose Route Start Last Admin Trade Name Gopal PRN Reason Stop Dose Admin Albuterol Sulfate 2 puff 09/05/20 13:00 09/07/20 17:58 Albuterol 200 Puff (6.7gm Inhaler) INH 2 puff Q4HR ELIAN Administration Ascorbic Acid 1,000 mg 09/06/20 09:00 09/07/20 10:16 Ascorbic Acid 500 Mg Chewable Tablet PO 1,000 mg DAILY ELIAN Administration Aspirin 81 mg 09/05/20 09:00 09/07/20 10:16 Aspirin Chewable 81 Mg Tab PO 81 mg DAILY ELIAN Administration Calcium Carbonate 600 mg 09/05/20 09:00 09/07/20 10:15 Calcium Carbonate 600 Mg Tab PO 600 mg QAM ELIAN Administration Cholecalciferol 1,000 units 09/05/20 09:00 09/07/20 10:16 Cholecalciferol 1,000 Units (25 Mcg) Tab PO 1,000 units DAILY ELIAN Administration Dexamethasone 6 mg 09/05/20 09:00 09/07/20 10:16 Dexamethasone 4 Mg/Ml Vial SLOW IVP 6 mg DAILY ELIAN Administration Doxycycline Hyclate 100 mg 09/05/20 21:00 09/07/20 10:15 Doxycycline 100 Mg Cap PO 100 mg BID ELIAN Administration Enoxaparin Sodium 40 mg 09/07/20 09:00 09/07/20 10:14 Enoxaparin Sodium 40 Mg/0.4 Ml Syringe SC 40 mg 09 ELIAN Administration Famotidine 20 mg 09/05/20 21:00 09/07/20 10:15 Famotidine 20 Mg Tab PO 20 mg BID ELIAN Administration Fish Oil 1,000 mg 09/05/20 09:00 09/07/20 10:15 Fish Oil 1,000 Mg Cap PO 1,000 mg QAM ELIAN Administration Guaifenesin 600 mg 09/05/20 21:00 09/07/20 10:15 Guaifenesin Er 600 Mg Tab PO 600 mg Q12HR ELIAN Administration Remdesivir 100 mg/ Sodium 250 mls @ 250 mls/hr 09/06/20 10:00 09/07/20 13:12 Chloride IV 09/09/20 10:59 250 mls 1000 ELIAN Administration Magnesium Sulfate 2 gm/ Device 50 mls @ 50 mls/hr 09/07/20 18:15 09/07/20 18:15 IVPB 09/07/20 21:00 50 mls NOW ELIAN Administration Lisinopril 10 mg 09/05/20 09:00 09/05/20 12:26 Lisinopril 10 Mg Tab PO Not Given DAILY ELIAN Mometasone Furoate/Formoterol Fumar 2 puff 09/05/20 18:30 09/07/20 17:58 Mometasone 200 Mcg/Formoterol 5 Mcg 120 Puff Inhaler INH 2 puff BID-RT ELIAN Administration Multivitamins 1 tab 09/06/20 09:00 09/07/20 10:15 Multivit, Therapeutic 1 Tab PO 1 tab DAILY ELIAN Administration Triamterene/Hydrochlorothiazide 1 tab 09/05/20 09:00 09/07/20 18:10 Triamterene/Hydrochlorothiazide 37.5 Mg/25 Mg Tablet PO Not Given QAM ELIAN Zinc Sulfate 220 mg 09/06/20 09:00 09/07/20 10:15 Zinc Sulfate 220 Mg Cap PO 220 mg DAILY ELIAN Administration - Exam General Appearance: NAD Heart: RRR, no gallops Respiratory: no wheezes, rales, rhonchi Gastrointestinal: non-tender, non-distended Extremities: no cyanosis Neurological: no new deficit Hosp A/P - Plan DVT proph w/lovenox, DVT proph w/SCDs Patient is a 74-year-old female with hypertension, diabetes mellitus type 2 and asthma presented to the hospital with generalized weakness. Her work-up was consistent with acute hypoxic respiratory failure due to COVID-19 pneumonia. Her room air sat was 88% on the day of admission. CT angiogram of the chest was negative for pulmonary embolism. It showed findings consistent with bilateral Covid pneumonia. Patient was started on remdesivir with Decadron and bronchodilators. She also received convalescent plasma. Assessment: Acute hypoxic respiratory failure due to COVID-19 pneumonia Generalized weakness due to above CKD stage II Obesity with a BMI 34.8 Diabetes mellitus type 2 Hypertension Mild intermittent asthma Mild hypernatremia Hypomagnesemia Plan: Symptomatically patient remained stable. She is currently on room air. Inflammatory markers are improving. LFTs stable. Blood cultures negative. Will continue O2 supplementation with remdesivir and steroids. Continue Lovenox for DVT prophylaxis. Continue GI prophylaxis. Lisinopril on hold. Restart triamterene/HCTZ in a.m. Discontinue amlodipine. Recheck inflammatory markers in a.m. Replace magnesium. Continue other medications as above. DC home after remdesivir completion on 09/09
[2020-09-08] MEDS: Albuterol 200 PUFF (6.7GM INHALER) INH SCH ×6 (00:15→20:44)
[2020-09-08] MEDS: Mometasone 200 MCG/Formoterol 5 MCG 120 PUFF INHALER INH SCH ×2 (05:31→16:53)
[2020-09-08 05:43] LABS: Hemoglobin 9.5 g/dL (12.0-16.0); Mean Corpuscular HGB CONC 31.3 g/dL (32.0-36.0); Mean Corpuscular Hemoglobin 28.1 pg (27.0-31.0); Mean Corpuscular Volume 89.7 fL (78.0-98.0); Mean Platelet Volume 7.4 fL (7.4-10.4); Platelet Count 369 thou/uL (130-400); RBC Distribution Width 12.8 % (11.5-14.5); Red Blood Cell (RBC) Count 3.38 mill/uL (4.20-5.40); White Blood Cell (WBC) Count 5.3 thou/uL (4.8-10.8)
[2020-09-08 05:57] LABS: ALT (SGPT) 23 U/L (8-55); AST (SGOT) 23 U/L (5-34); Albumin 3.2 g/dL (3.4-4.8); Alkaline Phosphatase 82 U/L (40-110); Anion Gap 14 mmol/L (10-20); BUN (Urea Nitrogen) 25 mg/dL (9.8-20.1); Bilirubin, Total 0.3 mg/dL (0.2-1.2); CRP (Inflammatory) 4.58 mg/dL (= or < 0.5); Calc. Creatinine Clearance 80 mL/min (70-130); Calcium 8.6 mg/dL (7.8-10.44); Carbon Dioxide 24 mmol/L (23-31); Chloride 108 mmol/L (98-107); Globulin 3.2 g/dL (2.4-3.5); Glucose 97 mg/dL (83-110); Potassium 3.7 mmol/L (3.5-5.1); Protein, Total 6.4 g/dL (6.0-8.3); Sodium 142 mmol/L (136-145)
[2020-09-08 06:19] LABS: Band 4 % (5-11); Eosinophils 1 % (0-10); Lymphocytes 27 % (21-51); MDiff Complete? YES; Monocytes 10 % (0-10); Neutrophil 58 % (42-75)
[2020-09-08] MEDS: Aspirin Chewable 81 MG TAB PO SCH (08:06)
[2020-09-08] MEDS: Ascorbic Acid 500 mg Chewable Tablet PO SCH (08:06)
[2020-09-08] MEDS: Calcium Carbonate 600 MG TAB PO SCH (08:06)
[2020-09-08] MEDS: Cholecalciferol 1,000 UNITS (25 MCG) TAB PO SCH (08:07)
[2020-09-08] MEDS: Dexamethasone 4 mg/ml Vial SLOW IVP SCH (08:07)
[2020-09-08] MEDS: Doxycycline 100 MG CAP PO SCH ×2 (08:08→20:44)
[2020-09-08] MEDS: Enoxaparin Sodium 40 MG/0.4 ML SYRINGE SC SCH (08:08)
[2020-09-08] MEDS: Multivit, Therapeutic 1 TAB PO SCH (08:09)
[2020-09-08] MEDS: Famotidine 20 MG TAB PO SCH ×2 (08:09→20:44)
[2020-09-08] MEDS: Triamterene/Hydrochlorothiazide 37.5 mg/25 mg Tablet PO SCH (08:09)
[2020-09-08] MEDS: guaiFENesin ER 600 MG TAB PO SCH ×2 (08:09→20:44)
[2020-09-08] MEDS: Fish Oil 1,000 MG CAP PO SCH (08:09)
[2020-09-08] MEDS: Zinc Sulfate 220 MG CAP PO SCH (08:09)
[2020-09-08] MEDS: REMDESIVIR (EUA) 100 MG in Sodium Chloride 0.9% 250 ML 230 ML IV SCH (11:28)
--- NOTE | 2020-09-08 22:29 | PDOC.HOSPP ---
- Subjective Encounter Date: 09/08/20 Encounter Time: 10:30 Subjective: Patient seen and examined for resp failure due to COVID 19. Shortness of breath slowly improving. Mild dry cough. No fever or chills. - Objective Vital Signs & Weight: Vital Signs (12 hours) Temp Pulse Resp BP Pulse Ox 09/08/20 20:00 97.9 F 76 18 144/68 H 96 09/08/20 16:25 98.8 F 76 20 151/72 H 96 09/08/20 12:00 98.3 F 75 20 95 Weight Admit Weight 203 lb Weight 203 lb I&O: 09/07/20 09/08/20 09/09/20 06:59 06:59 06:59 Intake Total 130 730 780 Output Total 420 800 700 Balance -290 -70 80 Result Diagrams: 09/08/20 04:56 09/08/20 04:56 Additional Labs: Abnormal Lab Results - Last 48 hrs 09/07/20 04:29: Chloride 108 H, AST 40 H, Albumin 3.3 L, Albumin/Globulin Ratio 1.0 L 09/07/20 04:29: WBC 4.3 L, RBC 3.34 L, Hgb 9.7 L, Hct 30.0 L, Band Neuts % (Manual) 15 H 09/08/20 04:56: Chloride 108 H, BUN 25 H, C-Reactive Protein 4.58 H, Albumin 3.2 L, Albumin/Globulin Ratio 1.0 L 09/08/20 04:56: Ferritin 1178.81 H 09/08/20 04:56: RBC 3.38 L, Hgb 9.5 L, Hct 30.3 L, MCHC 31.3 L, Band Neuts % (Manual) 4 L 09/08/20 04:56: D-Dimer 0.85 H Microbiology - Entire Visit 09/04/20 10:56 Venous blood - Left Arm Blood Culture - Preliminary NO GROWTH AT 48 HOURS 09/04/20 10:55 Venous blood - Right Arm Blood Culture - Preliminary NO GROWTH AT 48 HOURS EKG Reviewed by me: Yes (Sinus rhythm on telemetry) Hospitalist ROS - Review of Systems Cardiovascular: denies: chest pain, palpitations, orthopnea, paroxysmal noc. dyspnea, edema, light headedness, other Gastrointestinal: denies: nausea, vomiting, abdominal pain, diarrhea, constipation, melena, hematochezia, other - Medication Medications: Active Medications Generic Name Dose Route Start Last Admin Trade Name Freq PRN Reason Stop Dose Admin Albuterol Sulfate 2 puff 09/05/20 13:00 09/08/20 20:44 Albuterol 200 Puff (6.7gm Inhaler) INH 2 puff Q4HR ELIAN Administration Ascorbic Acid 1,000 mg 09/06/20 09:00 09/08/20 08:06 Ascorbic Acid 500 Mg Chewable Tablet PO 1,000 mg DAILY ELIAN Administration Aspirin 81 mg 09/05/20 09:00 09/08/20 08:06 Aspirin Chewable 81 Mg Tab PO 81 mg DAILY ELIAN Administration Calcium Carbonate 600 mg 09/05/20 09:00 09/08/20 08:06 Calcium Carbonate 600 Mg Tab PO 600 mg QAM ELIAN Administration Cholecalciferol 1,000 units 09/05/20 09:00 09/08/20 08:07 Cholecalciferol 1,000 Units (25 Mcg) Tab PO 1,000 units DAILY ELIAN Administration Dexamethasone 6 mg 09/05/20 09:00 09/08/20 08:07 Dexamethasone 4 Mg/Ml Vial SLOW IVP 6 mg DAILY ELIAN Administration Doxycycline Hyclate 100 mg 09/05/20 21:00 09/08/20 20:44 Doxycycline 100 Mg Cap PO 100 mg BID ELIAN Administration Enoxaparin Sodium 40 mg 09/07/20 09:00 09/08/20 08:08 Enoxaparin Sodium 40 Mg/0.4 Ml Syringe SC 40 mg 0900 ELIAN Administration Famotidine 20 mg 09/05/20 21:00 09/08/20 20:44 Famotidine 20 Mg Tab PO 20 mg BID ELIAN Administration Fish Oil 1,000 mg 09/05/20 09:00 09/08/20 08:09 Fish Oil 1,000 Mg Cap PO 1,000 mg QAM ELIAN Administration Guaifenesin 600 mg 09/05/20 21:00 09/08/20 20:44 Guaifenesin Er 600 Mg Tab PO 600 mg Q12HR ELIAN Administration Remdesivir 100 mg/ Sodium 250 mls @ 250 mls/hr 09/06/20 10:00 09/08/20 11:28 Chloride IV 09/09/20 10:59 250 mls 1000 ELIAN Administration Lisinopril 10 mg 09/05/20 09:00 09/05/20 12:26 Lisinopril 10 Mg Tab PO Not Given DAILY ELIAN Mometasone Furoate/Formoterol Fumar 2 puff 09/05/20 18:30 09/08/20 16:53 Mometasone 200 Mcg/Formoterol 5 Mcg 120 Puff Inhaler INH 2 puff BID-RT ELIAN Administration Multivitamins 1 tab 09/06/20 09:00 09/08/20 08:09 Multivit, Therapeutic 1 Tab PO 1 tab DAILY ELIAN Administration Triamterene/Hydrochlorothiazide 1 tab 09/05/20 09:00 09/08/20 08:09 Triamterene/Hydrochlorothiazide 37.5 Mg/25 Mg Tablet PO 1 tab QAM ELIAN Administration Zinc Sulfate 220 mg 09/06/20 09:00 09/08/20 08:09 Zinc Sulfate 220 Mg Cap PO 220 mg DAILY ELIAN Administration - Exam General Appearance: NAD Neck: supple, no JVD Heart: RRR, no gallops Respiratory: no wheezes, rales, rhonchi Gastrointestinal: soft, non-tender, normal bowel sounds Extremities: no cyanosis Hosp A/P - Plan DVT proph w/lovenox, DVT proph w/SCDs Patient is a 74-year-old female with hypertension, diabetes mellitus type 2 and asthma presented to the hospital with generalized weakness. Her work-up was consistent with acute hypoxic respiratory failure due to COVID-19 pneumonia. Her room air sat was 88% on the day of admission. CT angiogram of the chest was negative for pulmonary embolism. It showed findings consistent with bilateral Covid pneumonia. Patient was started on remdesivir with Decadron and bronchodilators. She also received convalescent plasma. Assessment: Acute hypoxic respiratory failure due to COVID-19 pneumonia Generalized weakness due to above CKD stage II Obesity with a BMI 34.8 Diabetes mellitus type 2 Hypertension Mild intermittent asthma Mild hypernatremia Hypomagnesemia Plan: WBC counts normal. Markers improving. Last dose of Remdesivir in a.m. DC home after Remdesivir dose LFTs stable. Arrange for home oxygen. Counseled on COVID 19 isolation. Complete 10 day course of steroids. Continue other medications as above. Transfer to medical.
[2020-09-09] MEDS: Albuterol 200 PUFF (6.7GM INHALER) INH SCH ×4 (00:05→12:20)
[2020-09-09] MEDS: Mometasone 200 MCG/Formoterol 5 MCG 120 PUFF INHALER INH SCH (05:37)
[2020-09-09] MEDS: Enoxaparin Sodium 40 MG/0.4 ML SYRINGE SC SCH (07:59)
[2020-09-09] MEDS: Triamterene/Hydrochlorothiazide 37.5 mg/25 mg Tablet PO SCH (07:59)
[2020-09-09] MEDS: Multivit, Therapeutic 1 TAB PO SCH (07:59)
[2020-09-09] MEDS: Cholecalciferol 1,000 UNITS (25 MCG) TAB PO SCH (07:59)
[2020-09-09] MEDS: Famotidine 20 MG TAB PO SCH (07:59)
[2020-09-09] MEDS: Calcium Carbonate 600 MG TAB PO SCH (07:59)
[2020-09-09] MEDS: Doxycycline 100 MG CAP PO SCH (07:59)
[2020-09-09] MEDS: Zinc Sulfate 220 MG CAP PO SCH (07:59)
[2020-09-09] MEDS: Ascorbic Acid 500 mg Chewable Tablet PO SCH (07:59)
[2020-09-09] MEDS: Fish Oil 1,000 MG CAP PO SCH (07:59)
[2020-09-09] MEDS: Aspirin Chewable 81 MG TAB PO SCH (07:59)
[2020-09-09] MEDS: guaiFENesin ER 600 MG TAB PO SCH (08:00)
[2020-09-09] MEDS: Dexamethasone 4 mg/ml Vial SLOW IVP SCH (08:00)
[2020-09-09] MEDS: REMDESIVIR (EUA) 100 MG in Sodium Chloride 0.9% 250 ML 230 ML IV SCH (10:34)
[2020-09-09 11:36] VITALS: BP 145/66; TEMP 97.1
--- NOTE | 2020-09-09 20:04 | PDOC.DS.DS ---
Provider - Provider Date of Admission: 09/05/20 09:07 Date of Discharge: 09/09/20 Admitting Provider: Opal Curry MD Consultations: None Primary Care Physician: NO PCP PROVIDER Course - Hospital Course Hospital Course: Patient is a 74-year-old female with hypertension, diabetes mellitus type 2 and asthma presented to the emergency room on 09/04 with generalized weakness and decreased appetite. Her daughter was recently tested positive for COVID-19. She was found to have hypoxemia with O2 saturation of 88% on room air. Please refer to the history and physical for further details. The patient was admitted to the hospital with a diagnosis of acute hypoxic respiratory failure due to COVID-19 pneumonia. She was placed on O2 supplemen tation. She was also started on 6 mg dexamethasone daily with convalescent plasma as well as Remdesivir. She completed 5-day course of remdesivir. Her O2 saturation at discharge is 96% on room air. She appears stable for discharge. She was counseled on isolation for COVID-19. Final diagnosis: Acute hypoxic respiratory failure due to COVID-19 pneumonia Generalized weakness due to above CKD stage II Obesity with a BMI 34.8 Diabetes mellitus type 2 Hypertension Mild intermittent asthma Mild hypernatremia Hypomagnesemia Resuscitation Status: 09/04/20 14:01 Resuscitation Status Routine Resuscitation Status: FULL: Full Resuscitation - Labs Lab Results: 09/08/20 04:56 09/08/20 04:56 Abnormal Lab Results - Last 48 hrs 09/08/20 04:56: Chloride 108 H, BUN 25 H, C-Reactive Protein 4.58 H, Albumin 3.2 L, Albumin/Globulin Ratio 1.0 L 09/08/20 04:56: Ferritin 1178.81 H 09/08/20 04:56: RBC 3.38 L, Hgb 9.5 L, Hct 30.3 L, MCHC 31.3 L, Band Neuts % (Manual) 4 L 09/08/20 04:56: D-Dimer 0.85 H Microbiology - Entire Visit 09/04/20 10:56 Venous blood - Left Arm Blood Culture - Final NO GROWTH IN 5 DAYS 09/04/20 10:55 Venous blood - Right Arm Blood Culture - Final NO GROWTH IN 5 DAYS - Physical Exam Vitals: Vital Signs (12 hours) Temp Pulse Resp BP Pulse Ox 09/09/20 11:35 97.1 F L 95 18 145/66 H 97 09/09/20 08:47 96 09/09/20 08:27 96.7 F L 72 20 137/63 94 L Weight Admit Weight 203 lb Weight 203 lb Physical Exam: The patient was seen and examined on the day of discharge. Plan - Discharge Medications Prescriptions: Dexamethasone 6 mg PO DAILY #5 tablet Famotidine [Pepcid] 20 mg PO BID #20 tab Albuterol Sulfate HFA (OR) [Proventil Hfa (or)] 2 puff INH Q4H PRN #1 inh PRN Reason: Sob &/Or Wheezing Home Medications: Medication Instructions Recorded Confirmed Type Aspirin [Radha Chewable Aspirin] 81 mg PO DAILY 08/06/14 09/04/20 History Calcium Carbonate [Calcium] 600 mg PO QAM 08/06/14 09/04/20 History Lisinopril [Prinivil] 10 mg PO DAILY 08/06/14 09/04/20 History Omega3/DHA/EPA/Fish Oil/Vit D3 1 cap PO QAM 08/06/14 09/04/20 History [Fish Oil + Vitamin D-3 Softgel] Triamterene/Hydrochlorothiazid 1 cap PO QAM 08/06/14 09/04/20 History [Dyazide] metFORMIN HCl 1,000 mg PO HS 08/06/14 09/04/20 History Cholecalciferol (Vitamin D3) 25 mcg PO DAILY 12/04/18 09/04/20 History [Vitamin D] traMADol HCl [Tramadol HCl] 50 mg PO PRN PRN 12/04/18 09/04/20 History Albuterol Sulfate HFA (OR) 2 puff INH Q4H PRN #1 inh 09/09/20 Rx [Proventil Hfa (or)] Dexamethasone 6 mg PO DAILY #5 tablet 09/09/20 Rx Famotidine [Pepcid] 20 mg PO BID #20 tab 09/09/20 Rx Multivit, Therapeutic [Theragran] 1 tab PO DAILY tab 09/09/20 Rx Allergies: No Known Allergies Allergy (Verified 12/05/19 15:39) - Discharge Instructions Discharge Instructions:: YOUR PRESCRIPTIONS WERE SENT TO: [email or web address] [address] [place] [id number] - Follow up Plan Referrals: Juana Lanza FNP [[facility]ied Health Professional] - 7 Days Benjamín Guevara MD [Active] - 7 Days Disposition: HOME Quality - Care Measures CORE MEASURES:: N/A
== END 2020-09-09 14:54 | disposition home or self-care (01) | DRG 177 ==
LOC: ERS 08:44 → ERHOLD 11:50 → 2SW 15:07 → OBSVTOIN 09-05 09:07 → T4-B 09-08 20:27
PROVIDERS: ADMIT Internal Medicine; ATTEND Internal Medicine
PROC: XW13325 Transfusion of Convalescent Plasma (Nonautologous) into Peripheral Vein, Percutaneous Approach, New Technology Group 5 (ICD-10-PCS; principal; 2020-09-04)
PROC: XW033E5 Introduction of Remdesivir Anti-infective into Peripheral Vein, Percutaneous Approach, New Technology Group 5 (ICD-10-PCS; 2020-09-05)
PROC: 8E0ZXY6 Isolation (ICD-10-PCS; 2020-09-05)
DX: U07.1 COVID-19 (principal); J12.89 Other viral pneumonia; J96.01 Acute respiratory failure with hypoxia; E87.0 Hyperosmolality and hypernatremia; M19.90 Unspecified osteoarthritis, unspecified site; N18.2 Chronic kidney disease, stage 2 (mild); J45.20 Mild intermittent asthma, uncomplicated; E11.22 Type 2 diabetes mellitus with diabetic chronic kidney disease; E66.9 Obesity, unspecified; I12.9 Hypertensive chronic kidney disease with stage 1 through stage 4 chronic kidney disease, or unspecified chronic kidney disease; E83.42 Hypomagnesemia; Z68.34 Body mass index [BMI] 34.0-34.9, adult
CPT/HCPCS: 36415; 36430; 71045; 71275; 80048; 80053; 82553; 82728; 83605; 83615; 83735; 84100; 84484; 85025; 85379; 86140; 86850; 86900; 86901; 87040; 93005; 96365; 96367; 96375; J0456; J0696; J1100; J1650; J3475; J7050; P9017; Q9967; U0002

== ENCOUNTER 2021-01-12 13:07 | Outpatient (CLI) | payer MEDICARE ==
[2021-01-12 14:34] LABS: #Eosinphils 0.7 10x3/uL (0.0-0.5); #Monocytes 0.6 10x3/uL (0.0-1.1); #Neutrophils 6.7 10x3/uL (1.5-8.4); %Basophils 0.4 % (0.0-2.0); %Lymphocytes 15.2 % (18.0-47.0); %Neutrophils 70.9 % (40.0-75.0); Hemoglobin 10.5 g/dL (12.0-15.5); Mean Corpuscular HGB CONC 30.9 g/dL (32.0-36.0); Mean Corpuscular Hemoglobin 28.4 pg (27.0-33.0); Mean Corpuscular Volume 91.9 fl (81.6-98.3); Mean Platelet Volume 9.7 fl (7.4-10.4); Platelet Count 258 10x3/uL (150-450); RBC Distribution Width 13.5 % (11.5-14.5); White Blood Cell (WBC) Count 9.5 10x3/uL (3.5-10.5)
[2021-01-12 14:44] LABS: Anion Gap 15 mmol/L (10-20); BUN (Urea Nitrogen) 13 mg/dL (9.8-20.1); Calc. Creatinine Clearance 0 mL/min (70-130); Calcium 9.6 mg/dL (7.8-10.44); Carbon Dioxide 29 mmol/L (23-31); Chloride 100 mmol/L (98-107); Glucose 124 mg/dL (83-110); Potassium 3.9 mmol/L (3.5-5.1); Sodium 140 mmol/L (136-145)
[2021-01-12 14:45] LABS: INR-International Normal Ratio 0.9; Prothrombin Time 10.3 sec (9.5-12.1)
[2021-01-12 14:53] LABS: Bilirubin Neg (Negative); Blood, Urine Negative (Negative); Clarity Clear (Clear); Glucose, Urine (Dipstick) Normal (Negative); Ketone, Urine Negative (Negative); Leukocyte 25 (Negative); Nitrite Negative (Negative); Protein, Urine (Dipstick) Negative (Neg-Trace); Urobilinogen Normal mg/dL (Less than 2); pH, Urine 6.5 (5.0-9.0)
[2021-01-12 15:29] LABS: Bacteria/HPF None Seen HPF (None Seen); RBC/HPF None Seen HPF (0-3); Squamous Epithelial 0-3 HPF (0-3); WBC/HPF 0-3 HPF (0-3)
[2021-01-13 01:27] LABS: SARS-CoV-2 PCR by NAA Not Detected (NotDetected)
== END 2021-01-12 13:08 | disposition home or self-care (01) ==
LOC: LABBT 13:07
PROVIDERS: ATTEND Orthopaedic Surgery
DX: Z01.818 Encounter for other preprocedural examination (principal); M17.12 Unilateral primary osteoarthritis, left knee; Z20.822 Contact with and (suspected) exposure to COVID-19
CPT/HCPCS: 80048; 81001; 85025; 85610; 87081; 93005; U0003; U0005; 87635; 93010

== ENCOUNTER 2021-01-12 13:30 | Inpatient (IN) | payer MEDICARE ==
[2021-01-17] MEDS ORDERED: Tranexamic Acid 1,000 MG/10 ML VIAL ONE (07:31)
[2021-01-17] MEDS ORDERED: Sodium Chloride 0.9% 100 ML ONE (07:31)
[2021-01-17] MEDS ORDERED: Vancomycin 1.5 GRAM/300 ML BAG 1.5 GM in Premix Bag 1 BAG IVPB SCH (07:45)
[2021-01-17] MEDS ORDERED: Fentanyl 100 MCG/2 ML VIAL ONE ×4 (08:25→11:17)
[2021-01-17] MEDS ORDERED: Midazolam HCl 2 mg/2 ml Vial ONE (08:25)
[2021-01-17] MEDS ORDERED: Promethazine HCl 25 MG/ML VIAL IM PRN ×2 (09:04→10:00)
[2021-01-17] MEDS ORDERED: Acetaminophen 325 MG TAB PO PRN (09:04)
[2021-01-17] MEDS ORDERED: diphenhydrAMINE 25 MG CAP PO PRN (09:04)
[2021-01-17] MEDS ORDERED: Ondansetron PF 4 MG/2 ML Vial IVP PRN ×2 (09:04→10:00)
[2021-01-17] MEDS ORDERED: HYDROcodone/Acetaminophen 10/325 mg Tablet PO PRN ×3 (09:04→10:00)
[2021-01-17] MEDS ORDERED: traMADol HCl 50 MG TAB PO PRN ×3 (09:04→10:00)
[2021-01-17] MEDS ORDERED: Zolpidem Tartrate 5 MG TAB PO PRN ×2 (09:04→10:00)
[2021-01-17] MEDS ORDERED: Lidocaine 1% PF 5 ML VIAL ONE (09:44)
[2021-01-17] MEDS ORDERED: Ketorolac Tromethamine 30 MG/ML VIAL ONE (09:44)
[2021-01-17] MEDS ORDERED: PROPOFOL 200 MG/20 ML VIAL ONE (09:44)
[2021-01-17] MEDS ORDERED: Ropivacaine 2% HCl/PF (20 MG/10 ML VIAL) ONE (09:44)
[2021-01-17] MEDS ORDERED: diphenhydrAMINE 50 MG/ML VIAL ONE (09:44)
[2021-01-17] MEDS ORDERED: Ondansetron PF 4 MG/2 ML Vial ONE (09:44)
[2021-01-17] MEDS ORDERED: Bupivacaine HCl 0.5%/Epinephrine 1:200,000/PF 30 ml Vial ONE (09:44)
[2021-01-17] MEDS ORDERED: Ondansetron HCl/PF 4 MG/2 ML Vial IVP PRN (09:47)
[2021-01-17] MEDS ORDERED: Fentanyl 100 MCG/2 ML VIAL SLOW IVP PRN (09:57)
[2021-01-17] MEDS ORDERED: Ropivacaine HCl/PF 250 ML in Premix Bag 1 BAG NERVE BLCK SCH (10:00)
[2021-01-17] MEDS: HYDROcodone/Acetaminophen 10/325 mg Tablet PO PRN ×2 (13:25→17:39)
[2021-01-17 14:07] VITALS: BMI 38.0
[2021-01-17] MEDS: Sodium Chloride 0.9% 1,000 ML IV SCH ×2 (14:59→15:00)
[2021-01-17] MEDS: CEFAZOLIN 2 GM in Premix Bag 1 BAG IVPB SCH (15:38)
[2021-01-17] MEDS: metFORMIN 500 MG TAB PO SCH (16:43)
[2021-01-17] MEDS: Enoxaparin Sodium 40 MG/0.4 ML SYRINGE SC SCH (20:34)
[2021-01-17] MEDS: Aspirin 81 mg Enteric Coated Tablet PO SCH (20:35)
[2021-01-17] MEDS: traMADol HCl 50 MG TAB PO PRN (20:37)
[2021-01-18] MEDS: CEFAZOLIN 2 GM in Premix Bag 1 BAG IVPB SCH (01:00)
[2021-01-18] MEDS: HYDROcodone/Acetaminophen 10/325 mg Tablet PO PRN ×4 (04:48→18:22)
[2021-01-18] MEDS: Sodium Chloride 0.9% 1,000 ML IV SCH ×2 (04:50→11:13)
[2021-01-18 05:37] LABS: Hemoglobin 8.3 g/dL (12.0-16.0); Mean Corpuscular Hemoglobin 29.6 pg (27.0-31.0); Mean Corpuscular Volume 92.5 fL (78.0-98.0); Mean Platelet Volume 6.5 fL (7.4-10.4); Platelet Count 218 thou/uL (130-400); RBC Distribution Width 12.6 % (11.5-14.5); Red Blood Cell (RBC) Count 2.79 mill/uL (4.20-5.40); White Blood Cell (WBC) Count 8.4 thou/uL (4.8-10.8)
[2021-01-18] MEDS: traMADol HCl 50 MG TAB PO PRN (07:53)
[2021-01-18] MEDS: Multivitamin W/ Minerals 1 TAB PO SCH (07:54)
[2021-01-18] MEDS: Senokot S 8.6-50 MG TAB PO SCH ×2 (07:54→19:48)
[2021-01-18] MEDS: Aspirin 81 mg Enteric Coated Tablet PO SCH ×2 (07:54→19:48)
[2021-01-18] MEDS: Enoxaparin Sodium 40 MG/0.4 ML SYRINGE SC SCH ×2 (07:55→19:48)
[2021-01-18] MEDS: Ferrous Gluconate 324 MG TAB PO SCH ×2 (07:55→16:50)
[2021-01-18] MEDS: Triamterene/Hydrochlorothiazide 37.5 mg/25 mg Tablet PO SCH (07:55)
[2021-01-18] MEDS: Lisinopril 10 MG TAB PO SCH (07:55)
[2021-01-18] MEDS ORDERED: Multivit, Therapeutic 1 TAB PO SCH (09:00)
[2021-01-18] MEDS: metFORMIN 500 MG TAB PO SCH (16:50)
[2021-01-19] MEDS: HYDROcodone/Acetaminophen 10/325 mg Tablet PO PRN ×3 (00:09→14:12)
[2021-01-19] MEDS: Sodium Chloride 0.9% 1,000 ML IV SCH ×2 (04:20→07:48)
[2021-01-19 05:30] LABS: Hemoglobin 7.9 g/dL (12.0-16.0); Mean Corpuscular HGB CONC 31.9 g/dL (32.0-36.0); Mean Corpuscular Hemoglobin 29.5 pg (27.0-31.0); Mean Corpuscular Volume 92.7 fL (78.0-98.0); Mean Platelet Volume 6.7 fL (7.4-10.4); Platelet Count 222 thou/uL (130-400); RBC Distribution Width 12.5 % (11.5-14.5); Red Blood Cell (RBC) Count 2.67 mill/uL (4.20-5.40); White Blood Cell (WBC) Count 9.5 thou/uL (4.8-10.8)
[2021-01-19] MEDS: Multivitamin W/ Minerals 1 TAB PO SCH (07:47)
[2021-01-19] MEDS: Ferrous Gluconate 324 MG TAB PO SCH (07:47)
[2021-01-19] MEDS: Senokot S 8.6-50 MG TAB PO SCH (07:47)
[2021-01-19] MEDS: Triamterene/Hydrochlorothiazide 37.5 mg/25 mg Tablet PO SCH (07:47)
[2021-01-19] MEDS: Aspirin 81 mg Enteric Coated Tablet PO SCH (07:47)
[2021-01-19] MEDS: Lisinopril 10 MG TAB PO SCH (07:47)
[2021-01-19] MEDS: Enoxaparin Sodium 40 MG/0.4 ML SYRINGE SC SCH (07:48)
[2021-01-19 14:59] VITALS: BP 112/65; TEMP 98.7
== END 2021-01-19 15:40 | disposition home or self-care (01) | DRG 470 ==
LOC: EDSTATUS 13:30 → SURG A 01-17 06:22 → SJJU 01-17 12:29
PROVIDERS: ADMIT Orthopaedic Surgery; ATTEND Orthopaedic Surgery
PROC: 0SRD0J9 Replacement of Left Knee Joint with Synthetic Substitute, Cemented, Open Approach (ICD-10-PCS; principal; 2021-01-17)
DX: M17.12 Unilateral primary osteoarthritis, left knee (principal); Z20.822 Contact with and (suspected) exposure to COVID-19; I10 Essential (primary) hypertension; E66.9 Obesity, unspecified; Z68.38 Body mass index [BMI] 38.0-38.9, adult; Z86.718 Personal history of other venous thrombosis and embolism; Z79.899 Other long term (current) drug therapy
CPT/HCPCS: 36415; 85027; C1713; C1776; J0690; J1200; J1650; J1885; J2250; J2405; J2704; J2795; J3010; J3490; Q0163

== ENCOUNTER 2022-02-10 18:05 | Inpatient (IN) | payer MEDICARE ==
[2022-02-10 18:43] LABS: #Eosinphils 0.3 thou/uL (0.0-0.7); #Lymphocytes 1.2 thou/uL (1.20-3.40); #Monocytes 0.4 thou/uL (0.11-0.59); #Neutrophils 7.3 thou/uL (1.40-6.50); %Basophils 0.2 % (0.0-1.0); %Eosinophils 3.4 % (0.0-10.0); %Monocytes 3.9 % (0.0-10.0); %Neutrophils 79.5 % (42.0-75.0); Hemoglobin 12.4 g/dL (12.0-16.0); Mean Corpuscular HGB CONC 30.7 g/dL (32.0-36.0); Mean Corpuscular Hemoglobin 28.6 pg (27.0-31.0); Mean Corpuscular Volume 93.2 fL (78.0-98.0); Mean Platelet Volume 7.8 fL (7.4-10.4); Platelet Count 204 thou/uL (130-400); RBC Distribution Width 13.2 % (11.5-14.5); Red Blood Cell (RBC) Count 4.35 mill/uL (4.20-5.40); White Blood Cell (WBC) Count 9.2 thou/uL (4.8-10.8)
[2022-02-10] MEDS ORDERED: Metoclopramide HCl 10 MG/2 ML VIAL ONE (19:00)
[2022-02-10 19:16] LABS: ALT (SGPT) 34 U/L (8-55); AST (SGOT) 25 U/L (5-34); Alkaline Phosphatase 74 U/L (40-110); Anion Gap 16 mmol/L (10-20); BUN (Urea Nitrogen) 14 mg/dL (9.8-20.1); Bilirubin, Total 0.4 mg/dL (0.2-1.2); Calc. Creatinine Clearance 0 mL/min (70-130); Calcium 9.4 mg/dL (7.8-10.44); Carbon Dioxide 32 mmol/L (23-31); Chloride 98 mmol/L (98-107); Globulin 3.2 g/dL (2.4-3.5); Glucose 145 mg/dL (83-110); Potassium 3.6 mmol/L (3.5-5.1); Protein, Total 7.2 g/dL (5.8-8.1); Sodium 142 mmol/L (136-145)
[2022-02-10] MEDS ORDERED: Dicyclomine 20 MG TAB ONE (21:23)
[2022-02-10 22:25] VITALS: BMI 36.8
[2022-02-10] MEDS ORDERED: Acetaminophen 325 MG TAB PO PRN (23:30)
[2022-02-10] MEDS ORDERED: Ondansetron PF 4 MG/2 ML Vial IVP PRN (23:30)
[2022-02-10] MEDS ORDERED: Ondansetron ODT 4 MG TAB SL PRN (23:30)
[2022-02-11] MEDS: Sodium Chloride 0.9% 1,000 ML IV SCH ×3 (08:36→17:35)
[2022-02-11] MEDS ORDERED: Dextrose 5% in Water 1,000 ML IV PRN (08:37)
[2022-02-11] MEDS ORDERED: Dextrose 50% Abboject 50 ML SYRINGE SLOW IVP PRN (08:37)
[2022-02-11] MEDS ORDERED: HumaLOG 300 UNITS/3 ML VIAL SC PRN (08:37)
[2022-02-11] MEDS: Enoxaparin Sodium 40 MG/0.4 ML SYRINGE SC SCH (09:24)
[2022-02-11 15:48] LABS: SARS-CoV-2 PCR by NAA Not Detected (NotDetected)
[2022-02-11] MEDS: metFORMIN 500 MG TAB PO SCH (17:34)
[2022-02-11] MEDS: Aspirin 81 mg Enteric Coated Tablet PO SCH (20:37)
[2022-02-12] MEDS: Sodium Chloride 0.9% 1,000 ML IV SCH (03:46)
[2022-02-12 06:15] LABS: Band 1 % (5-11); Eosinophils 10 % (0-10); Hypochromia SLIGHT = 6-15 cells (100X) (0-5/hpf); Lymphocytes 31 % (21-51); MDiff Complete? YES; Mean Corpuscular HGB CONC 30.1 g/dL (32.0-36.0); Mean Corpuscular Hemoglobin 28.4 pg (27.0-31.0); Mean Corpuscular Volume 94.5 fL (78.0-98.0); Mean Platelet Volume 7.4 fL (7.4-10.4); Monocytes 7 % (0-10); Neutrophil 51 % (42-75); Platelet Count 235 thou/uL (130-400); Platelet Morphology Comment Appears Adequate; Polychromasia SLIGHT = 2-3 cells (100X) (0-2/hpf); Red Blood Cell (RBC) Count 3.52 mill/uL (4.20-5.40); White Blood Cell (WBC) Count 7.3 thou/uL (4.8-10.8)
[2022-02-12 06:23] LABS: Anion Gap 10 mmol/L (10-20); BUN (Urea Nitrogen) 12 mg/dL (9.8-20.1); Calc. Creatinine Clearance 73 mL/min (70-130); Calcium 8.6 mg/dL (7.8-10.44); Carbon Dioxide 29 mmol/L (23-31); Chloride 107 mmol/L (98-107); Glucose 94 mg/dL (83-110); Potassium 3.9 mmol/L (3.5-5.1); Sodium 142 mmol/L (136-145)
[2022-02-12] MEDS ORDERED: Lisinopril 20 MG TAB PO SCH (09:00)
[2022-02-12] MEDS ORDERED: Triamterene/Hydrochlorothiazide 37.5 mg/25 mg Tablet PO SCH (09:00)
[2022-02-12] MEDS ORDERED: Cholecalciferol 1,000 UNITS (25 MCG) TAB PO SCH (09:00)
[2022-02-12] MEDS: Enoxaparin Sodium 40 MG/0.4 ML SYRINGE SC SCH (09:13)
[2022-02-12] MEDS: Aspirin 81 mg Enteric Coated Tablet PO SCH (09:13)
[2022-02-12] MEDS: metFORMIN 500 MG TAB PO SCH (09:13)
[2022-02-12 12:15] VITALS: BP 133/69; TEMP 98
== END 2022-02-12 12:30 | disposition home or self-care (01) | DRG 392 ==
LOC: ERS 18:05 → SURG A 21:30 → OBSVTOIN 02-12 11:25
PROVIDERS: ADMIT Internal Medicine; ATTEND Internal Medicine
DX: A08.4 Viral intestinal infection, unspecified (principal); Z20.822 Contact with and (suspected) exposure to COVID-19; E66.9 Obesity, unspecified; I10 Essential (primary) hypertension; M19.90 Unspecified osteoarthritis, unspecified site; Z79.84 Long term (current) use of oral hypoglycemic drugs; Z79.82 Long term (current) use of aspirin; Z79.899 Other long term (current) drug therapy; Z98.890 Other specified postprocedural states; Z68.36 Body mass index [BMI] 36.0-36.9, adult
CPT/HCPCS: 36415; 36416; 71045; 74177; 80048; 80053; 84484; 85025; 93005; 96361; 96374; J1650; J2765; J7050; U0003; U0005

== ENCOUNTER 2023-10-24 08:51 | Outpatient (CLI) | payer MEDICARE | END 2023-10-24 08:52 | disposition home or self-care (01) | LOC: ULT 08:51 | PROVIDERS: ATTEND Nurse Practitioner Family | DX: M79.89 Other specified soft tissue disorders (principal) | CPT/HCPCS: 93923 ==

== ENCOUNTER 2025-01-04 22:05 | Inpatient (IN) | payer MEDICARE ==
[~2025-01-04 22:05] MED LIST changes: +GASTROGRAFIN 30 ML BOT ONE; -Gadobenate Dimeglumine 529 MG/1 ML (20ML VIAL) ONE; +Iopamidol-370 76% 500 ML MDV (1 ML CHARGE) ONE
[2025-01-04] MEDS ORDERED: Ondansetron PF 4 MG/2 ML Vial ONE ×2 (22:30→23:05)
[2025-01-04 22:52] LABS: #Basophils 0.05 10x3/uL (0.0-0.2); %Basophils 0.2 % (0.0-1.0); %Eosinophils 0.3 % (0.0-10.0); %Lymphocytes 9.1 % (21.0-51.0); %Monocytes 4.9 % (0.0-10.0); Hematocrit 37.1 % (36.0-47.0); Hemoglobin 11.9 g/dL (12.0-16.0); Mean Corpuscular HGB CONC 32.1 g/dL (32.0-36.0); Mean Corpuscular Hemoglobin 27.5 pg (27.0-31.0); Mean Corpuscular Volume 85.9 fL (78.0-98.0); Mean Platelet Volume 9.1 fL (7.4-10.4); Platelet Count 341 10x3/uL (130-400); RBC Distribution Width 13.8 % (11.5-14.5); Red Blood Cell (RBC) Count 4.32 mill/uL (4.20-5.40)
[2025-01-04] MEDS ORDERED: Ketorolac Tromethamine 30 MG (1 mL) VIAL ONE (23:04)
[2025-01-04] MEDS ORDERED: Morphine 4 MG/ML VIAL ONE (23:05)
[2025-01-04 23:19] LABS: Troponin I 0.023 ng/mL (< 0.028)
[2025-01-05 00:31] LABS: ALT (SGPT) 79 U/L (Less than 34); AST (SGOT) 58 U/L (11-34); Albumin 3.4 g/dL (3.1-4.5); Alkaline Phosphatase 71 U/L (40-110); Anion Gap 14 mmol/L (10-20); BUN (Urea Nitrogen) 31 mg/dL (9.8-20.1); Bilirubin, Total 0.4 mg/dL (0.3-1.2); Calc. Creatinine Clearance 0 mL/min (70-130); Calcium 9.5 mg/dL (7.8-10.44); Carbon Dioxide 25 mmol/L (23-31); Chloride 106 mmol/L (98-107); Estimated GFR 53; Globulin 3.6 g/dL (2.4-3.5); Glucose 190 mg/dL (83-110); Lipase 12 U/L (8-78); Magnesium 1.7 mg/dL (1.6-2.6); Potassium 4.3 mmol/L (3.5-5.1); Sodium 141 mmol/L (136-145)
[2025-01-05 01:35] LABS: Bacteria/HPF None Seen HPF (None Seen); Bilirubin Negative (Negative); Blood, Urine 1+ (Negative); CAUTI Indications for Culture Pelvic or flank pain; Clarity Clear (Clear); Glucose, Urine (Dipstick) Normal (Negative); Ketone, Urine Negative (Negative); Leukocyte Negative Leu/uL (Negative); Nitrite Negative (Negative); Protein, Urine (Dipstick) 70 mg/dL (Neg-Trace); RBC/HPF 0-3 HPF (0-3); Specific Gravity, Urine 1.017 (1.002-1.036); Squamous Epithelial None Seen HPF (0-3); Urobilinogen Normal mg/dL (Less than 2); WBC/HPF 0-3 HPF (0-3)
[2025-01-05 01:36] LABS: Urine Culture Reflex No No
[2025-01-05] MEDS ORDERED: Morphine 2 MG/ML VIAL SLOW IVP PRN (04:54)
[2025-01-05] MEDS ORDERED: Ondansetron PF 4 MG/2 ML Vial IVP PRN (04:54)
[2025-01-05] MEDS ORDERED: hydrALAZINE 20 MG/ML VIAL SLOW IVP PRN (04:54)
[2025-01-05] MEDS ORDERED: Ipratropium/Albuterol 3 ML NEB NEB PRN (04:54)
[2025-01-05] MEDS ORDERED: Promethazine HCl 25 MG/ML VIAL IM PRN (04:54)
[2025-01-05] MEDS ORDERED: Insulin Lispro 100 UNIT/ML 10 ML VIAL SC PRN (04:54)
[2025-01-05] MEDS: Lactated Ringer's 1,000 ML IV SCH (05:35)
[2025-01-05 06:48] VITALS: BMI 35.4
[2025-01-05] MEDS: Morphine 4 MG/ML VIAL SLOW IVP PRN (07:45)
[2025-01-05] MEDS ORDERED: MD-Gastroview 120 ML BOT ONE (09:18)
[2025-01-05 17:10] VITALS: BP 155/84; TEMP 97.8
[2025-01-06] MEDS ORDERED: Acetaminophen 650 MG Suppository PR PRN (04:55)
[2025-01-06] MEDS ORDERED: Acetaminophen 325 MG TAB PO PRN (04:55)
== END 2025-01-05 17:40 | disposition home or self-care (01) | DRG 395 ==
LOC: ERS 22:05 → SURG B 01-05 04:04 → OBSVTOIN 01-05 04:54
PROVIDERS: ADMIT Specialist; ATTEND Specialist
DX: K43.6 Other and unspecified ventral hernia with obstruction, without gangrene (principal); E11.9 Type 2 diabetes mellitus without complications; I10 Essential (primary) hypertension; M19.90 Unspecified osteoarthritis, unspecified site; Z98.890 Other specified postprocedural states; Z96.652 Presence of left artificial knee joint; Z79.899 Other long term (current) drug therapy; Z79.84 Long term (current) use of oral hypoglycemic drugs; Z79.82 Long term (current) use of aspirin; K57.30 Diverticulosis of large intestine without perforation or abscess without bleeding
CPT/HCPCS: 36415; 36416; 51701; 71045; 74177; 74250; 80053; 81001; 82550; 83605; 83690; 83735; 83880; 84484; 85025; 87428; 93005; 96374; 96375; G0378; J1885; J2270; J2405; J7120; Q9963; Q9967